=== PATIENT | male | born 1945 | race Caucasian/White ===

== ENCOUNTER 2021-08-13 08:18 | Outpatient (CLI) | payer MEDICARE, BC, SELFPAY ==
--- NOTE | ~2021-08-13 | XR_ITS ---
XR chest 2V DATE: 08/13/2021 08:40 INDICATION: Prostate cancer TECHNIQUE: PA and lateral views COMPARISON: 02/07/2013 portable AP chest FINDINGS: There is prominent sheet-like pleural calcification along the posterior left diaphragm. Some smaller pleural calcifications are noted on the right. The calcified bilateral pleural plaques a re consistent with prior asbestos exposure. There is mild discoid atelectasis or more likely scarring in the lower lung zones. No pulmonary infiltrate or consolidation is detected. There is eventration of the anterior right diaphragm. Heart size is within normal limits. No hilar or mediastinal enlargement is evident. Degenerative spurring of the thoracic spine. Degenerative change at the acromioclavicular joints. 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 E GOODS CLERK IMPRESSION: Bilateral calcified pleural plaques suggesting prior asbestos expos ure Mild discoid atelectasis or more likely scarring in the lower lung zones
--- NOTE | ~2021-08-13 | NM_ITS ---
EXAMINATION: NM bone scan whole body DATE: 08/13/2021 11:29 INDICATION: Prostate cancer TECHNIQUE: 22.9 mCi Tc-99m HDP was administered intravenously. Delayed whole-body scintigrams were o btained. COMPARISON: CT abdomen and pelvis dated 08/13/2021 FINDINGS: Likely degenerative joint centered uptake at the bilateral knees with medial compartment predominance as well as at the bilateral acromioclavicular and sternoclavicular joints. Mild uptake associated wi th a few endplate osteophytes in the lumbar and lower thoracic spine. Additional likely degenerative disc disease related uptake at the cervicothoracic junction. Tiny focus of increased uptake along the right mandible likely related to dental disease. No other suspicious foci of abnormal bone uptake to suggest metastatic disease. IMPRESSION: 1. No evident metastatic disease. Reviewed, dictated and finalized at location A. GN ENGINEER [employer]IPMENT
--- NOTE | ~2021-08-13 | CT_ITS ---
EXAMINATION: CT abdomen pelvis wo/w con EXAM DATE: 08/13/2021 11:47 INDICATION: Prostate cancer. TECHNIQUE: Spiral CT of the abdomen and pelvis was performed without contrast. The patient was then injected with small bolus intravenous Omnipaque 350, followed by delay of approximately 10 minutes to allow collecting system to opacify. A post contrast scan abdomen and pelvis was performed during inj ection of remaining contrast. A total of 130 cc intravenous contrast was administered. The dose-binh th product (DLP) for this examination was 2171.69 mGy-cm. The exposure was tailored according to pat ient size (auto mA exposure control), and iterative reconstruction (ASIR) was used as additional dose reduction technique. Comparison is made to prior examination from 01/12/2014. FINDINGS: Punctate left superior calyceal stone. There is a 10 cm left renal cyst. The kidneys enha nce symmetrically. There are no suspicious renal lesions. The calyces and opacified portions of ure ters are unremarkable, without filling defects or focal suspicious strictures. The bladder wall trab eculation. Mild prostatomegaly. The liver, spleen, adrenal glands and pancreas are unremarkable. Gallbladder is unremarkable. No bi liary obstruction. There is no retroperitoneal or pelvic lymphadenopathy. Small bilateral inguinal fat-containing hernias. Status post right hemicolectomy. There is small sliding gastroesophageal hiatal hernia. There is ex pected amount of colonic stool. No free intraperitoneal gas. The heart is normal in size. There are no pericardial or pleural effusions. Bilateral thick pleural plaques with calcifications, could indicate prior asbestos exposure. There are no osteoblastic or osteolytic lesions identified. Partia lly fused sacroiliac joints. Moderate to large bridging thoracolumbar endplate osteophytes. IMPRESSION: 1. Punctate left nephrolithiasis. Large left renal cyst. 2. Mild prostatomegaly. 3. Pleural plaques. 4. Right hemicolectomy. Reviewed, dictated and finalized at location G. L CLERK
[2021-08-13 11:29] LABS: Estimated Glomerular Filt Rate > 60
== END 2021-08-13 08:19 | disposition home or self-care (01) ==
LOC: ANHIMG 08:24
PROVIDERS: PCP Family Medicine Adolescent Medicine; Visit Provider Urology
DX: C61 Malignant neoplasm of prostate (principal); N20.0 Calculus of kidney; N28.1 Cyst of kidney, acquired; N40.0 Benign prostatic hyperplasia without lower urinary tract symptoms; J92.9 Pleural plaque without asbestos; Z90.49 Acquired absence of other specified parts of digestive tract; R91.8 Other nonspecific abnormal finding of lung field
CPT/HCPCS: 71046; 74178; 78306; A9561; Q9967

== ENCOUNTER 2021-12-03 19:23 | Observation (INO) | payer MEDICARE, BC, SELFPAY ==
[2021-12-03] VITALS (19 sets, daily range): BP systolic 130–141; BP diastolic 76–89; PULSE 48–63; RESP 14–20; TEMP 36.3; O2SAT 92–100
--- NOTE | ~2021-12-03 | CT_ITS ---
EXAMINATION: CT brain wo con DATE: 12/03/2021 20:06 INDICATION: Sudden onset of confusion starting at 1830 hours TECHNIQUE: Computed tomography (CT) of the head was performed without intravenous contrast. The mA wa s adjusted according to patient size. Iterative reconstruction technique was employed. Exam dose: 60 5.33 mGy-cm total exam DLP. COMPARISON: August 25, 2015 MRI brain/brainstem FINDINGS: No intracranial mass lesion or hemorrhage or cerebrovascular accident. No midline shift or mass effect effect. Ventricular size is within normal range. Bilateral carotid siphon internal carotid artery calcifications. There is nonspecific diminished atte nuation of the cerebral white matter, likely due to chronic small vessel ischemic changes. No subdural or epidural hematoma. No fracture or bone destruction of the cranial vault. Included paranasal sinuses and mastoid air cell s are normally developed and aerated. IMPRESSION: Cerebral atherosclerosis and chronic small vessel ischemic changes of the cerebral white matter No acute intracranial finding Reviewed, dictated and finalized at Location A. Reviewed, dictated and finalized at location A.
--- NOTE | ~2021-12-03 | MR_ITS ---
EXAMINATION: MR brain/brain stem wo con DATE: 12/04/2021 07:45 INDICATION: Cerebrovascular accident. TECHNIQUE: Magnetic resonance imaging (MRI) of the brain and brainstem was performed without intraven ous contrast. COMPARISON: Brain MRI 08/25/2015, head CT 12/03/2021 FINDINGS: There are scattered areas of nonspecific increased T2-weighted signal intensity in the cere bral and cerebellar white matter and brittaney. There is no intracranial hemorrhage, acute infarction, or abnormal intracranial mass lesion. The ventricles are normal in size. There is a trace left mastoid e ffusion. There is mild mucosal thickening in the basal sinuses. The orbits are normal. IMPRESSION: 1. Moderate nonspecific cerebral and cerebellar white matter disease and pontine disease, which likel y represents chronic small vessel ischemic disease, worsened from 08/25/2015. Reviewed, dictated and finalized at location A. IMPRESSION: 1. Moderate nonspecific cerebral and cerebellar white matter disease and pontin e disease, which likely represents chronic small vessel ischemic disease, worse [place] from 08/25/2015.
--- NOTE | ~2021-12-03 | US_ITS ---
EXAMINATION: US carotid duplex BI DATE: 12/04/2021 07:59 INDICATION: TIA TECHNIQUE: Grayscale, color Doppler, and pulsed Doppler images of the cervical carotid arteries were obtained. The degree of vessel stenosis is placed in one of the following categories: normal, <50%, 5 0-69%, >=70% but less than near-occlusion, near-occlusion, or total occlusion. Note that percent sten osis relative to normal distal artery lumen diameter is indirectly measured from velocity measurement s as described by Ant, et al. Radiology 2003; 229:340-346. Notes: Normal: Peak systolic velocity <125 centimeters/sec and no plaque <50%. Peak systolic velocity <125 ( EDV <40; ICA/CCA PSV ratio <2.0; used these factors only a tandem lesions or low cardiac output or co ntralateral disease) 50-69 %: PSV 125-230 (EDV 40-100; ratio 2-4) >= 70% but less than near occlusion: PSV greater than 230 (EDV > 100; ratio> 4.0) Near Occlusion: PSV that is variable; markedly narrowed lumen Occlusion: Absent flow on color/spectral Doppler and no lumen on nichols scale. COMPARISON: None. FINDINGS: RIGHT: The right common carotid artery (CCA) peak systolic velocity (PSV) is 75 cm/s. The right internal car otid artery (ICA) PSV is 54 cm/s. The right ICA end-diastolic velocity (EDV) is 20 cm/s. The right IC A/CCA PSV ratio is 1.2. The external carotid artery (ECA) PSV is 55 cm/s. There is antegrade flow in the right vertebral artery. LEFT: The left CCA PSV is 60 cm/s. The left ICA PSV is 59 cm/s. The left ICA EDV is 21 cm/s. The left ICA/C CA PSV ratio is 1.2. The ECA PSV is 56 cm/s. There is antegrade flow in the left vertebral artery. IMPRESSION: 1. Less than 50% stenosis in the right internal carotid artery by sonographic criteria. 2. Less than 50% stenosis in the left internal carotid artery by sonographic criteria. Reviewed, dictated and finalized at location D. IMPRESSION: 1. Less than 50% stenosis in the right internal carotid artery by sonographic nunu figueroa. 2. Less than 50% stenosis in the left internal carotid artery by sonographic joaquin rodriguez.
--- NOTE | 2021-12-03 19:31 | ECG_ITS ---
Measurements Intervals [place] Rate: 51 P: 17 MT: 178 QRS: -66 QRSD: 106 T: -11 QT: 467 QTc: 433 Interpretive Statements SINUS BRADYCARDIA MARKED LEFT AXIS DEVIATION [QRS AXIS < -30] NO PREVIOUS ECG AVAILABLE FOR COMPARISON Electronically Signed On 12-03-2021 20:41:49 CDT by Madeleine Vaughn M.D.
[2021-12-03 19:35] LABS: Glucose Point of Care 87 mg/dl (65-105)
--- NOTE | 2021-12-03 19:43 | ED.NEUROSD ---
HPI - Neuro Symptoms/Deficit General Chief Complaint: Altered Mental Status Stated Complaint: confusion Time Seen by Provider: 12/03/21 19:36 History of Present Illness HPI Narrative: At around 1830 tonight patient developed slurred speach and difficult forming sentences. Pt felt a little unsteady but denies weakness, numbness, or COOPER. Over last hour the symptoms have improved greatly and are nearly resolved now. Related Data Allergies Allergy/AdvReac Type Severity Reaction Status Date / Time No Known Allergies Allergy Mild Unverified 05/07/10 07:34 Review of Systems Review of Systems: All systems reviewed & are unremarkable except as noted in HPI and below Exam Const: General: healthy appearing and no acute distress Nutritional Appearance: well nourished Orientation/consciousness: patient oriented x3 Limitations: no limitations HENMT: Head: normal to inspection Mouth: Yes Normal oral and palatal mucosa present Eyes: Pupils: Equal, round and reactive pupils present EOM: EOMs intact bilaterally Neck: Neck: normal visual inspection and no meningeal signs Resp: Effort & Inspection: normal respiratory effort Auscultation: clear to auscultation bilaterally Cardio: Rate: regular rate Rhythm: regular rhythm Heart sounds: Murmur heart sound present GI: GI Palp: Yes Soft to palpation Auscultation: normal bowel sounds Skin: General skin exam: normal color Rashes: no rashes Wounds: no wounds Neuro: General: patient oriented x3, moves all extremities, no meningeal signs, no focal motor deficits and CN's II-XI intact bilaterally Cranial nerves: Yes Nystagmus not present Speech: normal speech Gait exam (Neuro): Normal gait present Extrem: General: normal to inspection and no clubbing, cyanosis or edema Psych: Mental Status: mental status grossly normal Affect: normal affect Attitude: cooperative Course Vital Signs Vital signs: Vital Signs Temperature 97.4 F L 12/03/21 19:23 Pulse Rate 55 L 12/03/21 19:23 Respiratory Rate 16 12/03/21 19:23 Blood Pressure 141/89 H 12/03/21 19:23 Pulse Oximetry 98 12/03/21 19:23 Temperature 97.4 F L 12/03/21 19:23 Pulse Rate 50 L 12/03/21 21:15 Respiratory Rate 20 12/03/21 21:15 Blood Pressure 138/76 12/03/21 21:15 Pulse Oximetry 100 12/03/21 21:15 MDM - Neuro Symptoms/Deficit Lab Data Result diagrams: 12/03/21 19:52 12/03/21 19:52 Labs: Lab Results 12/03/21 12/03/21 12/03/21 Range/Units 19:32 19:52 19:52 WBC 6.6 (4.5-10.0) K/mm3 RBC 4.46 L (4.6-6.20) M/mm3 Hgb 13.7 L (14.0-18.0) g/dL Hct 41.0 L (42.0-52.0) % MCV 91.9 (80-100) fl MCH 30.7 (26-34) pg MCHC 33.4 (32-36) g/dl RDW 12.5 (11.5-14.5) % Plt Count 197 (150-375) k/mm3 MPV 9.6 (7.4-10.4) fl Immature Gran % (Auto) 0.2 (0-0.5) % Neut % (Auto) 55.6 (45.5-73.1) % Lymph % (Auto) 29.7 (18.3-44.2) % [place] % (Auto) 8.5 (2.6-8.5) % Eos % (Auto) 5.5 H (0-4.4) % Baso % (Auto) 0.5 (0.2-1.2) % Lymph # (Auto) 1.95 (0.9-3.2) K/mm3 [place] # (Auto) 0.6 (0.1-0.6) K/mm3 Eos # (Auto) 0.4 H (0-0.3) K/mm3 Baso # (Auto) 0.0 (0.0-0.1) K/mm3 Abs Immat Gran (auto) 0.01 (0.00-0.031) K/mm3 Absolute Neuts (auto) 3.7 (1.3-6.7) K/mm3 Absolute Nucleated RBC 0.0 (0.0-0.012) K/mm3 Nucleated RBC % 0.0 (0.0-0.2) % PT 13.4 (11.1-14.7) Seconds INR 1.1 APTT 36.4 (22.3-36.8) SECONDS Sodium (137-145) mmol/L Potassium (3.4-5.0) mmol/L Chloride (98-107) mmol/L Carbon Dioxide (22-30) mmol/L Anion Gap (8-16) mmol/L BUN (9-20) mg/dL Creatinine (0.7-1.3) mg/dL Estim Creat Clear Calc ml/min Estimated GFR (59 - ) Glucose (65-110) mg/dL POC Capillary Glucose 87 (65-105) mg/dl Calcium (8.4-10.2) mg/dL Total Bilirubin (0.2-1.3) mg/dL AST (17-59) U/L ALT (6-50) U/L Alkaline Phosphatase
[2021-12-03 19:59] LABS: Basophils Percent Auto 0.5 % (0.2-1.2); Eosinophils Absolute Auto 0.4 K/mm3 (0-0.3); Eosinophils Percent Auto 5.5 % (0-4.4); Hemoglobin 13.7 g/dL (14.0-18.0); Immature Granulocyte Absolute 0.01 K/mm3 (0.00-0.031); Immature Granulocyte Percent A 0.2 % (0-0.5); Lymphocytes Absolute Auto 1.95 K/mm3 (0.9-3.2); Lymphocytes Percent Auto 29.7 % (18.3-44.2); Mean Corpuscular HGB Conc 33.4 g/dl (32-36); Mean Corpuscular Hemoglobin 30.7 pg (26-34); Mean Corpuscular Volume 91.9 fl (80-100); Mean Platelet Volume 9.6 fl (7.4-10.4); Monocytes Absolute Auto 0.6 K/mm3 (0.1-0.6); Monocytes Percent Auto 8.5 % (2.6-8.5); Neutrophils Absolute Auto 3.7 K/mm3 (1.3-6.7); Neutrophils Percent Auto 55.6 % (45.5-73.1); Platelet Count Result 197 k/mm3 (150-375); Red Blood Count 4.46 M/mm3 (4.6-6.20); Red Cell Distribution Width 12.5 % (11.5-14.5); White Blood Count 6.6 K/mm3 (4.5-10.0)
[2021-12-03 20:10] LABS: Alanine Aminotransferase 11 U/L (6-50); Alkaline Phosphatase 57 U/L (38-126); Anion Gap 5 mmol/L (8-16); Aspartate Amino Transferase 21 U/L (17-59); Bilirubin,Total 0.3 mg/dL (0.2-1.3); Blood Urea Nitrogen 11 mg/dL (9-20); Calcium 8.5 mg/dL (8.4-10.2); Carbon Dioxide 28 mmol/L (22-30); Chloride 106 mmol/L (98-107); Estimated CRCL calculation 72 ml/min; Estimated Glomerular Filt Rate > 60; Glucose 96 mg/dL (65-110); INR 1.1; Potassium 3.9 mmol/L (3.4-5.0); Prothrombin Time 13.4 Seconds (11.1-14.7); Sodium 139 mmol/L (137-145)
[2021-12-03 20:11] LABS: Partial Thromboplastin Time 36.4 SECONDS (22.3-36.8)
[2021-12-03 21:34] LABS: Appearance Urine Clear (Clear); Bilirubin Urine Negative (Negative); Blood Urine Negative (Negative); Color Urine Yellow (Yellow); Glucose Urine UA Negative (Negative); Ketones Urine Negative (Negative); Leukocyte Esterase Ur Negative LEU/UL (Negative); Nitrate Urine Negative (Negative); Protein Urine Negative (Negative); Specific Grav Ur 1.015 (1.001-1.035)
[2021-12-03 21:40] LABS: Add Urine Microscopic? NO; WBC Urine 0-3 /hpf
--- NOTE | 2021-12-04 | ECHO_ITS ---
Patient Info Name: Vamsi Waite Age: 76 years : 1945 Gender: Male Ht: 70 in Wt: 165 lbs BSA: 1.93 m2 HR: 78 bpm BP: 128 / 84 mmHg Technical Quality: Fair Exam Date: 12/04/2021 12:08 PM Exam Location: [facility] Pulmonary Exam Room: 322 Patient Status: Inpatient Admit Date: 12/03/2021 Staff Ordering Physician: Collins Paulson MD [employer] Printer Operator: Lara Pringle RDCS Attending Provider: Lorenza Banks DO Exam Type: CA echo doppler color flow Study Info Indications - TIA Complete two-dimensional, color flow and Doppler transthoracic echocardiogram is performed. Summary 1. Complete two-dimensional, color flow and Doppler transthoracic echocardiogram is performed. 2. Left ventricular chamber dimension is normal. 3. Left ventricular systolic function is normal, estimated at 60-65%. 4. The left ventricular diastolic function is grade I diastolic dysfunction. 5. E/e' 9 is minimally elevated. 6. Left atrial chamber dimension is mildly enlarged. 7. No pulmonary hypertension, estimated pulmonary arterial systolic pressure is 21 mmHg. 8. There is trace pulmonic regurgitation. Left Ventricle E/e' 9 is minimally elevated. Left ventricular chamber dimension is normal. Left ventricular systolic function is normal, estimated at 60-65%. The left ventricular diastolic function is grade I diastolic dysfunction. Right Ventricle Right ventricular chamber dimension is normal. Right ventricular systolic function is normal. Left Atria Left atrial chamber dimension is mildly enlarged. Right Atria Right atrial chamber dimension is normal. Aortic Valve The aortic valve is trileaflet. There is no aortic valve stenosis. There is no aortic valve regurgitation. Pulmonic Valve There is trace pulmonic regurgitation. Mitral Valve There is no mitral valve stenosis. There is no mitral valve regurgitation. Tricuspid Valve There is no tricuspid valve regurgitation. No pulmonary hypertension, estimated pulmonary arterial systolic pressure is 21 mmHg. Pericardium/Pleural There is no pericardial effusion. Inferior Vena Cava Normal inferior vena cava with >50% collapse upon inspiration consistent with normal right atrial pressure, 5 mmHg. Aorta The aortic root size at the sinus of Valsalva is normal. Left Ventricular Outflow Tract Name Value Normal LVOT 2D LVOT Diameter 2.1 cm LVOT Doppler LVOT Peak Gradient 3 mmHg LVOT Mean Gradient 2 mmHg LVOT VTI 20 cm LVOT VTI/AV VTI Ratio 0.9 LVOT Stroke Volume 71 ml LVOT CO 14.4 l/min LVOT CI 7.5 l/min/m2 Pulmonic Valve Name Value Normal PV Doppler PV Peak Gradient 3 m
[2021-12-04 00:10] VITALS: BP 136/80; PULSE 45; RESP 16; TEMP 36.1; O2SAT 98
--- NOTE | 2021-12-04 00:18 | ADMGEN ---
This patient, Vamsi Waite, was admitted to [address] [facility] Surg Room 322-02. Patient/family oriented to hospital policies and general routines including ID bracelet, bed and alarms, visiting hours, pain management, procedures, bathroom and other care routines, personal items, smoking policy, room service/diet, and visiting hours. Information on how to activate the Rapid Response Team has been discussed. Patient/Family are encouraged to report perceived risks to care and to ask questions if they do not understand what they are told or what they should do.
--- NOTE | 2021-12-04 00:31 | PC.NURSE ---
12/04/21 0025 per pt's request avtar de la torre (spouse) contacted for admission questions to be answered.
[2021-12-04 04:00] VITALS: PULSE 53
[2021-12-04 05:10] VITALS: BP 128/84; PULSE 55; RESP 16; TEMP 36.3; O2SAT 94
[2021-12-04 08:00] VITALS: PULSE 55; RESP 16; O2SAT 94
[2021-12-04 08:08] LABS: Glucose Point of Care 92 mg/dl (65-105)
[2021-12-04] MEDS: PANTOPRAZOLE 40 MG TABLET PO (08:43)
[2021-12-04] MEDS: SIMVASTATIN 20 MG TABLET 80 MG PO (08:43)
[2021-12-04] MEDS: TAMSULOSIN HCL 0.4 MG CAPSULE PO (08:43)
[2021-12-04] MEDS: ASPIRIN 81 MG ENTERIC TABLET PO (08:43)
[2021-12-04] MEDS: OXYBUTYNIN CHLORIDE 5 MG TABLET PO (08:43)
[2021-12-04 11:52] LABS: Glucose Point of Care 108 mg/dl (65-105)
--- NOTE | 2021-12-04 12:54 | PCCCNOTE ---
On 12/04/21, the student, [Connie Cloud], provided care and completed [facility] documentation on this patient. I have reviewed the student's documentation and agree with the findings.
[2021-12-04 13:44] VITALS: BP 120/84; PULSE 78; RESP 18; TEMP 36.1; O2SAT 96
[2021-12-04 16:11] LABS: Glucose Point of Care 135 mg/dl (65-105)
--- NOTE | 2021-12-04 16:52 | PM.DS ---
DS: Summary Time Spent with Patient Time attestation: Total time spent providing and/or coordinating discharge services: DS: Data Data Completed and Pending Labs on day of discharge: Labs from last 24 hours 12/04/21 12/04/21 12/04/21 16:08 11:43 08:04 WBC RBC Hgb Hct MCV MCH MCHC RDW Plt Count MPV Immature Gran % (Auto) Neut % (Auto) Lymph % (Auto) [place] % (Auto) Eos % (Auto) Baso % (Auto) Lymph # (Auto) [place] # (Auto) Eos # (Auto) Baso # (Auto) Abs Immat Gran (auto) Absolute Neuts (auto) Absolute Nucleated RBC Nucleated RBC % PT INR APTT Sodium Potassium Chloride Carbon Dioxide Anion Gap BUN Creatinine Estim Creat Clear Calc Estimated GFR Glucose POC Capillary Glucose 135 H 108 H 92 Calcium Total Bilirubin AST ALT Alkaline Phosphatase Total Protein Albumin Urine Color Urine Appearance Urine pH Ur Specific [place] Urine Protein Urine Glucose (UA) Urine Ketones Ur Blood (Man) Urine Nitrate Urine Bilirubin Urine Urobilinogen Leukocyte Esterase Rfl Urine WBC 12/03/21 12/03/21 12/03/21 21:14 19:52 19:52 WBC RBC Hgb Hct MCV MCH MCHC RDW Plt Count MPV Immature Gran % (Auto) Neut % (Auto) Lymph % (Auto) [place] % (Auto) Eos % (Auto) Baso % (Auto) Lymph # (Auto) [place] # (Auto) Eos # (Auto) Baso # (Auto) Abs Immat Gran (auto) Absolute Neuts (auto) Absolute Nucleated RBC Nucleated RBC % PT 13.4 INR 1.1 APTT 36.4 Sodium 139 Potassium 3.9 Chloride 106 Carbon Dioxide 28 Anion Gap 5 L BUN 11 Creatinine 0.80 Estim Creat Clear Calc 72 Estimated GFR > 60 Glucose 96 POC Capillary Glucose Calcium 8.5 Total Bilirubin 0.3 AST 21 ALT 11 Alkaline Phosphatase 57 Total Protein 7.0 Albumin 4.0 Urine Color Yellow Urine Appearance Clear Urine pH 7.0 Ur Specific [place] 1.015 Urine Protein Negative Urine Glucose (UA) Negative Urine Ketones Negative Ur Blood (Man) Negative Urine Nitrate Negative Urine Bilirubin Negative Urine Urobilinogen 1.0 Leukocyte Esterase Rfl Negative Urine WBC 0-3 12/03/21 12/03/21 19:52 19:32 WBC 6.6 RBC 4.46 L Hgb 13.7 L Hct 41.0 L MCV 91.9 MCH 30.7 MCHC 33.4 RDW 12.5 Plt Count 197 MPV 9.6 Immature Gran % (Auto) 0.2 Neut % (Auto) 55.6 Lymph % (Auto) 29.7 [place] % (Auto) 8.5 Eos % (Auto) 5.5 H Baso % (Auto) 0.5 Lymph # (Auto) 1.95 [place] # (Auto) 0.6 Eos # (Auto) 0.4 H Baso # (Auto) 0.0 Abs Immat Gran (auto) 0.01 Absolute Neuts (auto) 3.7 Absolute Nucleated RBC 0.0 Nucleated RBC % 0.0 PT INR APTT Sodium Potassium Chloride Carbon Dioxide Anion Gap BUN Creatinine Estim Creat Clear Calc Estimated GFR Glucose POC Capillary Glucose 87 Calcium Total Bilirubin AST ALT Alkaline Phosphatase Total Protein Albumin Urine Color Urine Appearance Urine pH Ur Specific [place] Urine Protein Urine Glucose (UA) Urine Ketones Ur Blood (Man) Urine Nitrate Urine Bilirubin Urine Urobilinogen Leukocyte Esterase Rfl Urine WBC Discharge Plan Discharge Attending physician on discharge: Collins Paulson Discharging Clinician: Collins Paulson Patient Disposition: Home, Self-Care Activity: as tolerated Diet: heart healthy Discharge Instructions: patient to follow-up with his primary care provider soon as possible, patient instructed if any symptoms redeveloped to go to nearest emergency depart Patient Instructions: Antibiotic Form Stand Alone Forms: General Discharge Information Follow-up/Referrals: Hussein Davis MD [Primary Care Provider] - Discharge
--- NOTE | 2021-12-04 16:53 | PM.SD2 ---
Same Day Admit/Disch: HPI History of Present Illness Chief complaint: tia Narrative: Vamsi Waite is a 76 year old male ED-HPI-At around 1830 tonight patient developed slurred speach and difficult forming sentences.? Pt felt a little unsteady but denies weakness, numbness, or COOPER.? Over last hour the symptoms have improved greatly and are nearly resolved now. this morning patient's symptoms have resolved and states his speech is much better and is able to ambulate without any difficulty to further evaluate patient had CT scan of the head, MRI of the brain, and cardiac echo as well as carotid ultrasound on all the studies are normal. patient is already taking simvastatin 80 mg q.day and aspirin 81 mg q.day instructed to continue and will follow-up his primary care provider. [facility] Social History Social History Smoking status: Never smoker Alcohol intake: never Substance use: never Spiritual care concerns: No Same Day Admit/Disch: Med Pre-admit Medications Home Medications Medication Instructions Recorded Confirmed Type simvastatin 80 mg tablet 80 mg PO DAILY #90 tabs 08/31/21 12/04/21 Rx oxybutynin chloride 5 mg tablet 5 mg PO BID 12/04/21 12/04/21 History pantoprazole 40 mg tablet,delayed 40 mg PO BID 12/04/21 12/04/21 History release risperidone 2 mg tablet 2 mg PO HS 12/04/21 12/04/21 History tamsulosin 0.4 mg capsule 0.4 mg PO BID 12/04/21 12/04/21 History Exam Narrative: Patient is comfortable, NAD HEENT: eyes are clear and none icteric LUNGS: normal respiratory effort ABD: not distended Lower extremities: no edema SKIN: nonjaundiced Neuro: grossly intact. DS: Data Data Completed and Pending Labs on day of discharge: Labs from last 24 hours 12/04/21 12/04/21 12/04/21 16:08 11:43 08:04 WBC RBC Hgb Hct MCV MCH MCHC RDW Plt Count MPV Immature Gran % (Auto) Neut % (Auto) Lymph % (Auto) [place] % (Auto) Eos % (Auto) Baso % (Auto) Lymph # (Auto) [place] # (Auto) Eos # (Auto) Baso # (Auto) Abs Immat Gran (auto) Absolute Neuts (auto) Absolute Nucleated RBC Nucleated RBC % PT INR APTT Sodium Potassium Chloride Carbon Dioxide Anion Gap BUN Creatinine Estim Creat Clear Calc Estimated GFR Glucose POC Capillary Glucose 135 H 108 H 92 Calcium Total Bilirubin AST ALT Alkaline Phosphatase Total Protein Albumin Urine Color Urine Appearance Urine pH Ur Specific [place] Urine Protein Urine Glucose (UA) Urine Ketones Ur Blood (Man) Urine Nitrate Urine Bilirubin Urine Urobilinogen Leukocyte Esterase Rfl Urine WBC 12/03/21 12/03/21 12/03/21 21:14 19:52 19:52 WBC RBC Hgb Hct MCV MCH MCHC RDW Plt Count MPV Immature Gran % (Auto) Neut % (Auto) Lymph % (Auto) [place] % (Auto) Eos % (Auto) Baso % (Auto) Lymph # (Auto) [place] # (Auto) Eos # (Auto) Baso # (Auto) Abs Immat Gran (auto) Absolute Neuts (auto) Absolute Nucleated RBC Nucleated RBC % PT 13.4 INR 1.1 APTT 36.4 Sodium 139 Potassium 3.9 Chloride 106 Carbon Dioxide 28 Anion Gap 5 L BUN 11 Creatinine 0.80 Estim Creat Clear Calc 72 Estimated GFR > 60 Glucose 96 POC Capillary Glucose Calcium 8.5 Total Bilirubin 0.3 AST 21 ALT 11 Alkaline Phosphatase 57 Total Protein 7.0 Albumin 4.0 Urine Color Yellow Urine Appearance Clear Urine pH 7.0 Ur Specific [place] 1.015 Urine Protein Negative Urine Glucose (UA) Negative Urine Ketones Negative Ur Blood (Man) Negative Urine Nitrate Negative Urine Bilirubin Negative Urine Urobilinogen 1.0 Leukocyte Esterase Rfl Negative Urine WBC 0-3 12/03/21 12/03/21 19:52 19:32 WBC 6.6 RBC 4.46 L Hgb 13.7 L Hct 4
== END 2021-12-04 17:50 | disposition home or self-care (01) ==
LOC: ANHED 21:42 → ANH3MEDSUR 22:47
PROVIDERS: Emergency Medicine; Admitting Provider Internal Medicine; Emergency Provider Emergency Medicine; PCP Family Medicine Adolescent Medicine; Visit Provider Internal Medicine
DX: G45.9 Transient cerebral ischemic attack, unspecified (principal); Z79.899 Other long term (current) drug therapy
CPT/HCPCS: 36415; 70450; 70551; 80053; 81003; 82948; 85025; 85610; 85730; 93005; 93306; 93880; 99285; A9270; G0378

== ENCOUNTER 2021-12-29 09:44 | Outpatient (CLI) | payer MEDICARE, BC, SELFPAY ==
--- NOTE | ~2021-12-29 | XR_ITS ---
EXAMINATION: XR chest 2V DATE: 12/29/2021 11:49 INDICATION: Malignant neoplasm of the prostate TECHNIQUE: PA and lateral views of the chest are obtained. COMPARISON: 08/13/2021 FINDINGS: The lungs are free of acute opacities. There are areas of chronic pleural calcification. No pleural effusion or pneumothorax. The cardiomediastinal silhouette is normal. There is mild thoracic spondylosis. IMPRESSION: 1. No acute cardiopulmonary abnormality. 2. Areas of pleural calcification which can be seen in the setting of prior asbestos exposure. Reviewed, dictated and finalized at location B. IMPRESSION: 1. No acute cardiopulmonary abnormality. 2. Areas of pleural calcification which can be seen in the setting of prior asb estos exposure.
[2021-12-29 11:46] LABS: Appearance Urine Clear (Clear); Bilirubin Urine Negative (Negative); Blood Urine Negative (Negative); Color Urine Yellow (Yellow); Glucose Urine UA Negative (Negative); Ketones Urine Negative (Negative); Leukocyte Esterase Ur Negative LEU/UL (Negative); Nitrate Urine Negative (Negative); Protein Urine Negative (Negative); Urobilinogen Urine 0.2 mg/dL (<2.0)
[2021-12-29 11:52] LABS: Add Urine Microscopic? NO
== END 2021-12-29 09:45 | disposition home or self-care (01) ==
PROVIDERS: PCP Family Medicine Adolescent Medicine; Visit Provider Urology
DX: C61 Malignant neoplasm of prostate (principal); Z01.818 Encounter for other preprocedural examination
CPT/HCPCS: 36415; 71046; 81003; 86850; 86900; 86901

== ENCOUNTER 2022-01-07 01:03 | Day surgery (SDC) | payer MEDICARE, BC, SELFPAY ==
--- NOTE | 2021-12-10 16:06 | PM.IMHP ---
H&P: HPI History of Present Illness Date/Time: 12/10/21 16:06 Chief Complaint: Prostate cancer Narrative: patient is a 76-year-old gentleman recently referred with a PSA of 10.5. Transrectal ultrasound and biopsy of the prostate demonstrated a 45.0 cc prostate with 3 of 12 cores showing Abad 3+4=7 and 4+3=7. This is consistent with an in cc an unfavorable intermediate risk prostate cancer. After was careful discussion of therapeutic options including active surveillance, radiation therapy in various forms, androgen ablation and radical prostatectomy he has elected for the latter. He is aware of the risk including, but not limited to, adverse cardiopulmonary events, rectal injury, urinary incontinence and erectile dysfunction Review of Systems Cardiovascular: Cardiovascular: Denies chest pain, Denies lightheadedness, Denies palpitations and Denies dyspnea Respiratory: Respiratory: Denies dyspnea Gastrointestinal: Gastrointestinal: Denies diarrhea, Denies nausea and Denies vomiting Genitourinary: Genitourinary: Denies hematuria and Denies dysuria Endocrine: Endocrine: Denies palpitations PMFSH Past Medical History Medical History (Updated 12/10/21 @ 16:09 by Saad Larios MD) Brain TIA Family hx of colon cancer Hx of back injury Hx of colonic polyp Surgical History Surgical History (Updated 12/10/21 @ 10:21 by Saniya Betts MA) History of colon resection Hx of hernia repair Family History Family History Father Acute myocardial infarction Mother Carcinoma of colon, Onset Age: 83 Sibling Carcinoma of colon, Onset Age: 48 Social History Social History (Updated 12/10/21 @ 10:21 by Saniya Betts MA) Smoking status: Never smoker Second hand tobacco smoke exposure: No Alcohol intake: never Substance use: never Substance use type: does not use Living arrangements: with family Occupation/Education: retired Gender identity (if verbalized by the patient): Male Sexual Orientation (if Verbalized by the Patient): Straight or Heterosexual Spiritual care concerns: No Agree to blood products: Yes Meds Home Medications and Allergies Home Medications Medication Instructions Recorded Confirmed Type aspirin 81 mg tablet,delayed 81 mg PO QAM #30 tabs 12/04/21 12/10/21 Rx release oxybutynin chloride 5 mg tablet 5 mg PO BID 12/04/21 12/10/21 History pantoprazole 40 mg tablet,delayed 40 mg PO BID 12/04/21 12/10/21 History release risperidone 2 mg tablet 2 mg PO HS 12/04/21 12/10/21 History tamsulosin 0.4 mg capsule 0.4 mg PO BID 12/04/21 12/10/21 History atorvastatin 80 mg tablet 80 mg PO DAILY #90 tabs 12/10/21 12/10/21 Rx paroxetine HCl 40 mg tablet 40 mg PO DAILY 12/10/21 12/10/21 History Allergies Allergy/AdvReac Type Severity Reaction Status Date / Time No Known Allergies Allergy Mild Unverified 12/10/21 10:17 Exam Const: General: no acute distress Resp: Effort & Inspection: normal respiratory effort GI: Inspection: non-distended GI Palp: No abdominal tenderness and No Guarding due to palpation present (GI) Auscultation: normal bowel sounds Assessment and Plan Assessment and plan (1) Prostate cancer: Code(s): C61 - Malignant neoplasm of prostate Status: Acute Assessment and Plan: Robotic assisted prostatectomy and bilateral pelvic lymphadenectomy
[2021-12-29 10:15] VITALS: BMI 29.3
--- NOTE | 2021-12-29 10:17 | PC.NURSE ---
Report to the Outpatient Waiting Room, entrance under the green pavilion located off [facility], at time __0600 on date _01/07/22 . OR Time: _729 . - You and your visitor will be asked a series of questions to screen for COVID 19 for your protection. - Only one visitor is allowed at this time. - The patient visitor is requested to leave or wait in car when not with patient. - A mask is required within the hospital. Patients may have clear liquids (water, carbonated beverages, clear teas, apple juice) until 3 hours prior to surgery with a maximum of 20 ounces. - No food from midnight until time of surgery - Infants may have breast milk until 4 hours before surgery, infant formula 6 hours prior to surgery. - Children will be allowed to drink immediately following surgery. If applicable, please bring a bottle or sippy cup to assist with drinking. Juice, water, soda, and popsicles are readily available. For infants on formula, please bring formula the day of surgery. Pacifiers are allowed. Take the following medications with a SIP of water the morning of surgery: ____PAROXETINE Medications to discontinue per physician __PT STATES ASPIRIN 7 DAYS PRE OP PER DR ECHEVERRIA Date to take last dose____12/30/21 Please no make-up, nail setswana, hairspray, perfume, deodorant, or body powder the day of surgery. No jewelry (including any body piercings) or valuables the day of surgery, leave them at home. Please take a shower or bath the night before, or the morning of, surgery with an antibacterial soap. Wear comfortable, loose fitting clothing. Children are encouraged to wear pajamas. - Jewelry must be removed prior to entering the operating room. Rings and piercings that are not removed may be cut off. - The hospital will not accept responsibility for valuables. - Please leave all valuables, including medications, at home the day of surgery. If you are going home after surgery, a licensed driver's education instructor must drive you home. - NO public transportation without another adult. - We recommend that an adult stay with you for 24 hours following discharge. - We also recommend that you do not drive, make important decision, drink alcoholic beverages, or take any drugs that were not prescribed by your health care provider for at least 24 hours after your discharge time. For Pediatric surgeries, we recommend two adults accompany the child home (only one inside the building at this time). BOWEL PREP PER DR ECHEVERRIA Follow any additional instructions given to you from your surgeon. If you or anyone in your household have experienced Covid symptoms in the past week, please notify your surgeon or the nurse liaison at the phone number below for possible testing. VERBAL AND WRITTEN instructions given to PATIENT AND PAT and asked if any additional questions and then verbalized understanding. Patient advised to call surgeon office or pre surgery nurse liaison [phone] if any additional questions.
[2021-12-29 10:38] VITALS: BP 108/76; PULSE 64; RESP 18; TEMP 36.2; O2SAT 96
--- NOTE | 2022-01-06 13:57 | WPDANESEPPF ---
Anes - Initial Pre Proc Eval Procedure: Operation Date: 01/07/22 07:30 Proposed Procedures p Robotic Assisted Laparoscopic Prostatectomy with Bilateral Pelvic Lymph Node Dissection - Saad Larios MD Date/Time: 01/06/22 13:57 Surgeon: Saad Larios MD Pre Op Diagnosis: prostate CA Patient Data Age: 76 Gender: M Height: 1.85 m Weight: 100.8 kg Last Vital Signs Temp 97.2 F L 12/29/21 10:38 Pulse 64 12/29/21 10:38 Resp 18 12/29/21 10:38 BP 108/76 12/29/21 10:38 Pulse Ox 96 12/29/21 10:38 O2 Del Method Room Air 12/29/21 10:38 Allergies Allergy/AdvReac Type Severity Reaction Status Date / Time No Known Allergies Allergy Mild Unverified 01/07/22 06:45 Home Medications Medication Instructions Recorded Confirmed Type aspirin 81 mg tablet,delayed 81 mg PO QAM #30 tabs 12/04/21 01/07/22 Rx release oxybutynin chloride 5 mg tablet 5 mg PO BID 12/04/21 01/07/22 History risperidone 2 mg tablet 2 mg PO HS 12/04/21 01/07/22 History tamsulosin 0.4 mg capsule 0.4 mg PO BID 12/04/21 01/07/22 History paroxetine HCl 40 mg tablet 40 mg PO QAM 12/10/21 01/07/22 History atorvastatin 80 mg tablet 80 mg PO HS 12/29/21 01/07/22 History pantoprazole 40 mg tablet,delayed 40 mg PO BID 01/07/22 01/07/22 History release Patient hx anesthesia problems: none Family hx anesthesia problems: none Results Review: All pre-operative results and documents have been reviewed as part of the pre-operative evaluation. [facility] Past Medical History Medical History (Updated 01/06/22 @ 13:57 by Jarred Vizcaino MD) Asthma Brain TIA Family hx of colon cancer Hx of back injury Hx of colonic polyp Prostate cancer Pure hypercholesterolemia, unspecified Surgical History Surgical History (Updated 12/10/21 @ 10:21 by Saniya Betts MA) History of colon resection Hx of hernia repair Family History Family History Father Acute myocardial infarction Mother Carcinoma of colon, Onset Age: 83 Sibling Carcinoma of colon, Onset Age: 48 Social History Social History (Updated 12/10/21 @ 10:21 by Saniya Betts MA) Smoking status: Never smoker Second hand tobacco smoke exposure: No Alcohol intake: never Substance use: never Substance use type: does not use Living arrangements: with family Gender identity (if verbalized by the patient): Male Sexual Orientation (if Verbalized by the Patient): Straight or Heterosexual Spiritual care concerns: No Agree to blood products: Yes Anes - Eval Final PreProcedure Day of Procedure 01/06/22 13:57 Patient weight: normal Heart: regular rate and rhythm Lungs: clear to auscultation Airway: Mallampati scale class III Neurological: alert and oriented Last oral intake: >/= 8 hours ASA classification: III Emergent: no Anesthetic plan: proceed Anesthesia type and monitoring: general ETT and standard monitoring Results Review: All pre-operative results and documents have been reviewed as part of the pre-operative evaluation. Informed Consent: The patient's anesthetic plan and its attendant risks and benefits were discussed with the patient/family/POA. Questions were solicited and answers provided to the satisfaction of the patient/family/POA.
[2022-01-07] VITALS (9 sets, daily range): BP systolic 97–147; BP diastolic 68–92; PULSE 67–86; RESP 12–16; TEMP 36–36.2; O2SAT 94–100
--- NOTE | 2022-01-07 06:54 | WPDHPUPDATE1 ---
History and Physical Update Update Date/Time: 01/07/22 06:54 History and Physical has been reviewed, including an updated exam of the patient. There are NO changes in the patient's condition. Risks, benefits, and alternatives have been discussed and questions answered. Patient agrees to proceed with procedure.
[2022-01-07] MEDS: LACTATED RINGERS 1,000 ML 30 ML IV CONT ×2 (06:56→08:37)
[2022-01-07] MEDS: ceFAZolin 2 GM/D5W 50 ML 2 GM/50 ML BAG IVPB (07:29)
--- NOTE | 2022-01-07 09:16 | W.PM.PROC2 ---
Procedure Note - Detailed Date of Procedure 01/07/22 Pre-op Diagnosis Prostate CA Post-op Diagnosis Same Procedure Performed Laparoscopy, aborted robotic prostatectomy Surgeon Saad Larios MD Senior Asic Design Engineer Noah Caicedo, [employer] KEEPER Anesthesia General Findings Extensive abdominal adhesions Description of Procedure patient is brought the op suite was prepped draped in routine sterile fashion while in dorsal lithotomy position after the uneventful induction of a general endotracheal anesthetic. Insufflation was 1st attempted via a Veress needle through a supra umbilical incision in the line of his previous abdominal incision for colon polyps. Insufflation is abnormal with immediate high pressure flow precluding appropriate abdominal insufflation. I replaced the Veress needle in through a small incision in the left upper quadrant ( and anticipated possible site for placement of a suction trocar). Through this I was able to insufflate the abdomen a bit more and place a 5 mm Visiport. Careful inspection of the abdomen reveals extensive adhesions involving all quadrants. There was really no identifiable plane into the pelvis. In light of this, and his history of extensive adhesions several years ago, it was my decision that the risk of enterotomy and the potential inadequate prostatectomy was too great and, therefore, opted to abort the procedure. Postoperatively I will discuss with patient the alternative options for treating his prostate cancer, including pelvic radiation, androgen deprivation and active surveillance. Estimated Blood Loss 0 Drains No Pathology None sent Complications No immediate complications Condition Stable Disposition PACU
[2022-01-07] MEDS: oxyCODONE HCL (*CRX) 2.5 MG TAB IR PO (10:23)
== END 2022-01-07 10:53 | disposition home or self-care (01) ==
PROVIDERS: PCP Family Medicine Adolescent Medicine; Visit Provider Urology
PROC: 0VT04ZZ Resection of Prostate, Percutaneous Endoscopic Approach (ICD-10-PCS; CPT 55867; principal; 2022-01-07 07:30)
DX: C61 Malignant neoplasm of prostate (principal); K66.0 Peritoneal adhesions (postprocedural) (postinfection); E78.00 Pure hypercholesterolemia, unspecified; Z80.0 Family history of malignant neoplasm of digestive organs; Z86.73 Personal history of transient ischemic attack (TIA), and cerebral infarction without residual deficits; Z79.82 Long term (current) use of aspirin; Z90.49 Acquired absence of other specified parts of digestive tract
CPT/HCPCS: 55866; A9270; J0690; J1100; J1170; J2250; J2405; J2704; J2710; J3010; J7030; J7120

== ENCOUNTER 2023-02-23 01:27 | Day surgery (SDC) | payer MEDICARE, BC, SELFPAY ==
[2023-02-10 11:19] VITALS: BMI 29.5
[2023-02-23 09:19] VITALS: BP 113/89; PULSE 86; RESP 17; TEMP 35.7; O2SAT 99; BMI 27.9
[2023-02-23] MEDS: LACTATED RINGERS 1,000 ML 150 ML IV CONT (09:27)
--- NOTE | 2023-02-23 09:58 | PM.HPGS ---
History of Present Illness History of Present Illness Consent: Risks, benefits, and alternatives have been discussed and questions answered. Patient agrees to proceed with procedure. Chief complaint: family hx colon ca Narrative: Vamsi Waite is a 78 year old male with last colonoscopy 2017, sibling and mother had colon cancer Review of Systems Constitutional: Constitutional: Denies headache(s) and Denies weakness Eyes: Eyes: Denies blurry vision ENT: Reports Normal hearing present, Denies headache(s) and Denies neck pain Cardiovascular: Cardiovascular: Denies chest pain and Denies dyspnea Respiratory: Respiratory: Denies dyspnea Gastrointestinal: Gastrointestinal: Reports no additional gastrointestinal complaints Genitourinary: Genitourinary: Denies dysuria Musculoskeletal: Musculoskeletal: Denies neck pain Integumentary/Breasts: Skin/Breast: Denies dry skin Neurologic: Reports Normal hearing present, Denies headache(s) and Denies weakness Psychiatric: Psychiatric: Denies anxiety Endocrine: Endocrine: Denies change in body appearance Hematologic/Lymphatic: Hematologic/Lymphatic: Denies easy bleeding Allergic/Immunologic: Allergic/Immunologic: Denies urticaria PMFSH Past Medical History Medical History (Updated 02/23/23 @ 09:59 by Ford Mello MD) Asthma Brain TIA Family hx of colon cancer Hx of back injury Hx of colonic polyp Prostate cancer Pure hypercholesterolemia, unspecified Surgical History Surgical History (Updated 12/10/21 @ 10:21 by Saniya Betts MA) History of colon resection Hx of hernia repair Family History Family History Father Acute myocardial infarction Mother Carcinoma of colon, Onset Age: 83 Sibling Carcinoma of colon, Onset Age: 48 Social History Social History (Updated 12/07/22 @ 13:18 by Misael Cabrera CMA) Smoking status: Never smoker Second hand tobacco smoke exposure: No Alcohol intake: never Substance use: never Substance use type: does not use Lack of Transportation: No Lack of Food: Never True Current Housing: I Have Housing Concerned About Future Housing: No Difficulty Paying Gas/Electric Bills: No Difficulty Paying for Meds: No Currently Unemployed: No Education: Trade/Vocational Certificate Difficulty w/ Childcare or Family Care: No Living arrangements: with family Occupation/Education: retired Gender identity (if verbalized by the patient): Male Sexual Orientation (if Verbalized by the Patient): Straight or Heterosexual Spiritual care concerns: No Agree to blood products: Yes Meds Home Medications and Allergies Home Medications Medication Instructions Recorded Confirmed Type aspirin 81 mg tablet,delayed 81 mg PO QAM #30 tabs 12/04/21 02/23/23 Rx release paroxetine HCl 40 mg tablet 40 mg PO QAM 12/10/21 02/23/23 History atorvastatin 80 mg tablet 80 mg PO HS #90 tabs 08/19/22 02/23/23 Rx diclofenac sodium 75 mg 75 mg PO BID PRN pain #60 tabs 12/07/22 02/23/23 Rx tablet,delayed release pantoprazole 40 mg tablet,delayed 40 mg PO BID #180 tabs 12/27/22 02/23/23 Rx release tamsulosin 0.4 mg capsule See Rx Instructions .Route 12/27/22 02/23/23 Rx .COMPLEX #180 caps oxybutynin chloride 5 mg tablet 5 mg PO BID #180 tabs 01/14/23 02/23/23 Rx risperidone 2 mg tablet See Rx Instructions .Route 02/21/23 02/23/23 Rx .COMPLEX #90 tabs Allergies Allergy/AdvReac Type Severity Reaction Status Date / Time No Known Allergies Allergy Mild Verified 02/23/23 09:14 Vital Signs Vital Signs - 24 hr 02/23/23 09:19 Temperature 96.3 F L Pulse Rate 86 Respiratory Rate 17 Blood Pressure 113/89 Pulse Oximetry 99 Oxygen Delivery Room Air Exam Const: General: comfortable and no acute distress HENMT: Face/Nose/Sinus: Normal nares present Eyes: General: appearance normal, both eyes and all related st
--- NOTE | 2023-02-23 10:01 | WPDANESEPPF ---
Anes - Initial Pre Proc Eval Procedure: Operation Date: 02/23/23 10:30 Proposed Procedures p Colonoscopy - Ford Mello MD Date/Time: 02/23/23 10:01 Surgeon: Ford Mello MD Pre Op Diagnosis: family hx colon ca Patient Data Age: 78 Gender: M Height: 1.88 m Weight: 98.8 kg Last Vital Signs Temp 96.3 F L 02/23/23 09:19 Pulse 86 02/23/23 09:19 Resp 17 02/23/23 09:19 BP 113/89 02/23/23 09:19 Pulse Ox 99 02/23/23 09:19 O2 Del Method Room Air 02/23/23 09:19 Allergies Allergy/AdvReac Type Severity Reaction Status Date / Time No Known Allergies Allergy Mild Verified 02/23/23 09:14 Home Medications Medication Instructions Recorded Confirmed Type aspirin 81 mg tablet,delayed 81 mg PO QAM #30 tabs 12/04/21 02/23/23 Rx release paroxetine HCl 40 mg tablet 40 mg PO QAM 12/10/21 02/23/23 History atorvastatin 80 mg tablet 80 mg PO HS #90 tabs 08/19/22 02/23/23 Rx diclofenac sodium 75 mg 75 mg PO BID PRN pain #60 tabs 12/07/22 02/23/23 Rx tablet,delayed release pantoprazole 40 mg tablet,delayed 40 mg PO BID #180 tabs 12/27/22 02/23/23 Rx release tamsulosin 0.4 mg capsule See Rx Instructions .Route 12/27/22 02/23/23 Rx .COMPLEX #180 caps oxybutynin chloride 5 mg tablet 5 mg PO BID #180 tabs 01/14/23 02/23/23 Rx risperidone 2 mg tablet See Rx Instructions .Route 02/21/23 02/23/23 Rx .COMPLEX #90 tabs Patient hx anesthesia problems: none Family hx anesthesia problems: none Results Review: All pre-operative results and documents have been reviewed as part of the pre-operative evaluation. [facility] Past Medical History Medical History (Updated 02/23/23 @ 09:59 by Ford Mello MD) Asthma Brain TIA Family hx of colon cancer Hx of back injury Hx of colonic polyp Prostate cancer Pure hypercholesterolemia, unspecified Surgical History Surgical History (Updated 12/10/21 @ 10:21 by Saniya Betts MA) History of colon resection Hx of hernia repair Family History Family History Father Acute myocardial infarction Mother Carcinoma of colon, Onset Age: 83 Sibling Carcinoma of colon, Onset Age: 48 Social History Social History (Updated 12/07/22 @ 13:18 by Misael Cabrera CMA) Smoking status: Never smoker Second hand tobacco smoke exposure: No Alcohol intake: never Substance use: never Substance use type: does not use Lack of Transportation: No Lack of Food: Never True Current Housing: I Have Housing Concerned About Future Housing: No Difficulty Paying Gas/Electric Bills: No Difficulty Paying for Meds: No Currently Unemployed: No Education: Trade/Vocational Certificate Difficulty w/ Childcare or Family Care: No Living arrangements: with family Occupation/Education: retired Gender identity (if verbalized by the patient): Male Sexual Orientation (if Verbalized by the Patient): Straight or Heterosexual Spiritual care concerns: No Agree to blood products: Yes Anes - Eval Final PreProcedure Day of Procedure 02/23/23 10:01 Patient weight: normal Heart: regular rate and rhythm Lungs: clear to auscultation Airway: Mallampati scale class III Neurological: alert and oriented Last oral intake: >/= 8 hours ASA classification: III Emergent: no Anesthetic plan: proceed Anesthesia type and monitoring: general GIVS and standard monitoring Results Review: All pre-operative results and documents have been reviewed as part of the pre-operative evaluation. Informed Consent: The patient's anesthetic plan and its attendant risks and benefits were discussed with the patient/family/POA. Questions were solicited and answers provided to the satisfaction of the patient/family/POA.
[2023-02-23 10:24] VITALS: BP 90/64; PULSE 62; RESP 24; O2SAT 95
[2023-02-23 10:34] VITALS: BP 106/74; BP 119/84; PULSE 60; PULSE 62; RESP 13; RESP 20; O2SAT 93; O2SAT 98
== END 2023-02-23 10:54 | disposition home or self-care (01) ==
PROVIDERS: PCP Family Medicine Adolescent Medicine; Visit Provider Internal Medicine Gastroenterology
PROC: 0DJD8ZZ Inspection of Lower Intestinal Tract, Via Natural or Artificial Opening Endoscopic (ICD-10-PCS; CPT 45378; principal; 2023-02-23 10:30)
DX: Z12.11 Encounter for screening for malignant neoplasm of colon (principal); Z86.010 Personal history of colon polyps; Z98.0 Intestinal bypass and anastomosis status; Z90.49 Acquired absence of other specified parts of digestive tract; Z80.0 Family history of malignant neoplasm of digestive organs; E78.00 Pure hypercholesterolemia, unspecified; J45.909 Unspecified asthma, uncomplicated; Z86.73 Personal history of transient ischemic attack (TIA), and cerebral infarction without residual deficits; Z85.46 Personal history of malignant neoplasm of prostate; Z79.82 Long term (current) use of aspirin
CPT/HCPCS: G0105; J2704; J7120

== ENCOUNTER 2023-03-22 19:06 | Emergency (ER) | payer MEDICARE, BC, SELFPAY ==
[2023-03-22 19:11] VITALS: BP 131/86; PULSE 77; RESP 18; TEMP 36.1; O2SAT 99
[2023-03-22 19:32] LABS: Appearance Urine Clear (Clear); Bacteria Urine None Seen /hpf; Bilirubin Urine Negative (Negative); Blood Urine Negative (Negative); Color Urine Yellow (Yellow); Glucose Urine UA Negative (Negative); Ketones Urine Negative (Negative); Leukocyte Esterase Ur Trace LEU/UL (Negative); Nitrate Urine Negative (Negative); Non Pathogenic Casts 0-2; Protein Urine Negative (Negative); RBC Urine 0-2 /hpf (0-2); Specific Grav Ur 1.006 (1.001-1.035); Squamous Epithelial Cell Urine None seen /hpf (Few); Urobilinogen Urine 0.2 mg/dL (<2.0); WBC Urine 0-5 /hpf
[2023-03-22 20:30] LABS: Add Urine Microscopic? YES
== END 2023-03-22 22:01 | disposition left against medical advice (07) ==
PROVIDERS: Emergency Provider Emergency Medicine; PCP Family Medicine Adolescent Medicine
DX: Z53.21 Procedure and treatment not carried out due to patient leaving prior to being seen by health care provider (principal)
CPT/HCPCS: 81001; 99199

== ENCOUNTER 2023-03-26 09:28 | Emergency (ER) | payer MEDICARE, BC, SELFPAY ==
[2023-03-26 09:35] VITALS: BP 103/70; PULSE 109; RESP 18; TEMP 36.6; O2SAT 98
--- NOTE | 2023-03-26 09:47 | ED.MALEGU ---
HPI - Male Genitourinary General Chief complaint: Urogenital-Male Stated complaint: trouble urinating Time Seen by Provider: 03/26/23 09:47 Source: patient Mode of arrival: ambulatory Limitations: no limitations History of Present Illness HPI Narrative: 78 years old white male is status post prostatic biopsy, unable to urinate since March 24 with lower abdominal pain and distention. He denies any fever or chills or nausea or vomiting. Related Data Home Medications Medication Instructions Recorded Confirmed paroxetine HCl 40 mg tablet 40 mg PO QAM 12/10/21 02/23/23 Allergies Allergy/AdvReac Type Severity Reaction Status Date / Time No Known Allergies Allergy Mild Verified 03/26/23 09:40 Review of Systems Review of Systems: All systems reviewed & are unremarkable except as noted in HPI and below PMFSH Past Medical History Medical History Asthma Brain TIA Family hx of colon cancer Hx of back injury Hx of colonic polyp Prostate cancer Pure hypercholesterolemia, unspecified Surgical History Surgical History History of colon resection Hx of hernia repair Family History Family History Father Acute myocardial infarction Mother Carcinoma of colon, Onset Age: 83 Sibling Carcinoma of colon, Onset Age: 48 Social History Social History Smoking status: Never smoker Second hand tobacco smoke exposure: No Alcohol intake: never Substance use: never Substance use type: does not use Lack of Transportation: No Lack of Food: Never True Current Housing: I Have Housing Concerned About Future Housing: No Difficulty Paying Gas/Electric Bills: No Difficulty Paying for Meds: No Currently Unemployed: No Education: Trade/Vocational Certificate Difficulty w/ Childcare or Family Care: No Living arrangements: with family Occupation/Education: retired Gender identity (if verbalized by the patient): Male Sexual Orientation (if Verbalized by the Patient): Straight or Heterosexual Spiritual care concerns: No Agree to blood products: Yes Exam Narrative: General appearance: Well-developed, well-nourished, in pain, restless Skin: Normal color Head: Normocephalic, nontraumatic Eyes: Clear conjunctiva ENT: Oropharynx normal, ears normal, nose normal Neck: Supple, nontender Chest and respiratory: Airway patent, no respiratory distress, no accessory muscle use Heart: Regular rate/rhythm Abdomen: Suprapubic distention and tenderness, no organomegaly, quiet bowel sounds Vascular: Normal peripheral pulses, normal capillary refill. Musculoskeletal: Normal range of motion, nontender back Neurologic: Alert and oriented ?3, CLIENT BUSINESS MANAGER is normal as tested, no gross motor deficit Course Reevaluation(s) Reevaluation #1: Feeling much better after Vasquez catheter placement, 1000 urine output. Date: 03/26/23 Time: 10:44 Vital Signs Vital signs: Vital Signs Temperature 36.6 C 03/26/23 09:35 Pulse Rate 109 H 03/26/23 09:35 Respiratory Rate 18 03/26/23 09:35 Blood Pressure 103/70 03/26/23 09:35 Pulse Oximetry 98 03/26/23 09:35 Oxygen Delivery Room Air 03/26/23 09:35 Temperature 36.6 C 03/26/23 09:35 Pulse Rate 61 03/26/23 10:50 Respiratory Rate 18 03/26/23 10:50 Blood Pressure 118/81 03/26/23 10:50 Pulse Oximetry 99 03/26/23 10:50 Oxygen Delivery Room Air 03/26/23 09:35 MDM - Male Genitourinary MDM Narrative Medical decision making narrative: Patient p
[2023-03-26 09:53] VITALS: BP 122/92; PULSE 80; RESP 18; O2SAT 98
[2023-03-26 10:19] LABS: Appearance Urine Clear (Clear); Bacteria Urine None Seen /hpf; Bilirubin Urine Negative (Negative); Blood Urine 1+ (Negative); Color Urine Yellow (Yellow); Glucose Urine UA Negative (Negative); Ketones Urine Negative (Negative); Leukocyte Esterase Ur Negative LEU/UL (Negative); Nitrate Urine Negative (Negative); Non Pathogenic Casts 0-2; Protein Urine Negative (Negative); RBC Urine 51-100 /hpf (0-2); Specific Grav Ur 1.011 (1.001-1.035); Squamous Epithelial Cell Urine None seen /hpf (Few); WBC Urine 0-5 /hpf; pH Urine 6.5 (5.0-9.0)
--- NOTE | 2023-03-26 10:25 | PC.NURSE ---
Catheter unclamped and draining by this nurse
[2023-03-26 10:36] LABS: Add Urine Microscopic? YES
[2023-03-26 10:50] VITALS: BP 118/81; PULSE 61; RESP 18; O2SAT 99
[2023-03-26 11:10] VITALS: BP 127/72; PULSE 63; RESP 18; O2SAT 100
== END 2023-03-26 11:11 | disposition home or self-care (01) ==
PROVIDERS: Emergency Provider Emergency Medicine; PCP Family Medicine Adolescent Medicine
DX: R33.9 Retention of urine, unspecified (principal); J45.909 Unspecified asthma, uncomplicated; E78.00 Pure hypercholesterolemia, unspecified; Z86.73 Personal history of transient ischemic attack (TIA), and cerebral infarction without residual deficits; Z86.010 Personal history of colon polyps; Z85.46 Personal history of malignant neoplasm of prostate; Z90.49 Acquired absence of other specified parts of digestive tract
CPT/HCPCS: 51702; 81001; 99283

== ENCOUNTER 2023-08-21 17:20 | Inpatient (IN) | payer MEDICARE, SELFPAY ==
--- NOTE | ~2023-08-21 | CT_ITS ---
EXAMINATION: CT brain wo con DATE: 08/21/2023 17:30 INDICATION: cva? . TECHNIQUE: Computed tomography (CT) of the head was performed without intravenous contrast. The mA wa s adjusted according to patient size. Iterative reconstruction technique was employed. The dose-lengt h product was 605.33 mGy-cm. COMPARISON: 12/03/2021. FINDINGS: No acute intracranial hemorrhage or extra-axial fluid collection. No hydrocephalus, mass, or herniation. No acute ischemic infarct. Unremarkable dural venous sinus attenuation. No acute osseous abnormality. The aerated spaces are clear. Moderate atrophy and chronic white matter change. Atherosclerotic intracranial calcification. IMPRESSION: No acute intracranial process. Results reported telephonically to Dr. Navarro by Dr. Ramos at 5:38 PM on 08/21/2023. Reviewed, dictated and finalized at location K. TER PERSON IMPRESSION: No acute intracranial process. Results reported telephonically to Dr. Navarro by Dr. Ramos at 5:38 PM on 07/29.
--- NOTE | ~2023-08-21 | CT_ITS ---
EXAMINATION: CTA brain carotid DATE: 08/21/2023 17:46 INDICATION: neuro symptoms TECHNIQUE: Computed tomographic angiography (CTA) of the head and neck was performed with 100 mL Omni paque-350 intravenous contrast. Automated exposure control and iterative reconstruction technique wer e employed. The dose-length product was 1231.01 mGy-cm. Maximum intensity projection and volume rend ered 3D-reconstructions were created by the technologist on a separate workstation. COMPARISON: CT brain, same date. FINDINGS: Motion artifact at multiple levels, overall the examination is diagnostic. CTA HEAD: No large vessel occlusion, aneurysm, high flow vascular malformation, nidus or extravasation. Hypopla stic right P1 segment with persistent origin of the right PORT TRAFFIC MANAGER. Patent cerebral veins. Symmetric parenchymal enhancement. Bilateral inferior maxillary mucosal thickening. CTA NECK: Aortic arch and proximal great vessels: Mild arch calcification. Normal arch anatomy. Right common carotid, carotid bifurcation, and internal carotid artery: Minimal noncalcified plaque a t the bifurcation.There is 0% stenosis of the proximal right internal carotid artery relative to norm al distal artery lumen diameter (NASCET criteria). Left common carotid, carotid bifurcation, and internal carotid artery: Minimal, but ulcerative appear ing noncalcified plaque at the bifurcation.There is 0% stenosis of the proximal left internal carotid artery relative to normal distal artery lumen diameter (NASCET criteria). Vertebral arteries: No significant plaque or stenosis. Other findings: Enlarged mediastinal lymph nodes. Clear lungs. Degenerative changes in the cervical s pine. IMPRESSION: No large vessel intracranial occlusion, high-grade intracranial stenosis, or aneurysm. No carotid or vertebral artery occlusion, dissection, or significant stenosis. Minimal but ulcerated appearing noncalcified plaque at the left carotid bifurcation. There is no lymphadenopathy. Reviewed, dictated and finalized at location K. ECT GEOLOGIST IMPRESSION: No large vessel intracranial occlusion, high-grade intracranial stenosis, or an eurysm. No carotid or vertebral artery occlusion, dissection, or significant stenosis. Minimal but ulcerated appearing noncalcified plaque at the left carotid bifurca tion. There is no lymphadenopathy.
--- NOTE | ~2023-08-21 | XR_ITS ---
EXAMINATION: XR chest 1V portable Exam Date/Time: 08/21/2023 18:20 DISABILITY INSURANCE HEARING OFFICER HISTORY: ams Comparison: 12/29/2021. RESULT: Lines, tubes, and devices: None. Lungs and pleura: Senescent/emphysematous changes. Scattered pleural calcifications. No focal consol idation, pleural effusion, or pneumothorax. Cardiomediastinal silhouette: Stable. Other: No acute osseous or upper abdominal finding. IMPRESSION: No acute cardiopulmonary process. Reviewed, dictated and finalized at location K. BILITY INSURANCE HEARING OFFICER
--- NOTE | ~2023-08-21 | MR_ITS ---
EXAMINATION: MR brain/brain stem wo con DATE: 08/22/2023 09:35 INDICATION: Transient ischemic attack. TECHNIQUE: Magnetic resonance imaging (MRI) of the brain and brainstem was performed without intraven ous contrast. COMPARISON: Brain MRI 12/04/2021, head CT 08/21/2023 FINDINGS: There are small acute infarct in the left frontoparietal espinoza radiata. There are scattere d areas of nonspecific increased T2-weighted signal intensity in the cerebral white matter and brittaney. There is no abnormal mass lesion or intracranial hemorrhage. The ventricles are normal in size. The o rbits are normal. There is mild mucosal thickening in the paranasal sinuses. The mastoid air cells ar e normal. IMPRESSION: 1. Small acute infarct in the left frontoparietal espinoza radiata. 2. Moderate nonspecific cerebral white matter disease and pontine disease, which likely represents ch ronic small vessel ischemic disease, slightly worsened from 12/04/2021. Reviewed, dictated and finalized at location A. FILLER IMPRESSION: 1. Small acute infarct in the left frontoparietal espinoza radiata. 2. Moderate nonspecific cerebral white matter disease and pontine disease, whic h likely represents chronic small vessel ischemic disease, slightly worsened fr om 12/04/2021.
--- NOTE | 2023-08-21 17:22 | ECG_ITS ---
Measurements Intervals [place] Rate: 56 P: 59 AL: 108 QRS: -33 QRSD: 100 T: -76 QT: 454 QTc: 440 Interpretive Statements SINUS BRADYCARDIA WITH SHORT AL INTERVAL WITH OCCASIONAL SUPRAVENTRICULAR PREMATURE COMPLEXES BASELINE ARTIFACT LEFT AXIS DEVIATION [QRS AXIS < -30] NONSPECIFIC ST ABNORMALITY BORDERLINE ECG COMPARED TO ECG 12/03/2021 19:33:54 NO SIGNIFICANT CHANGES Electronically Signed On 08-21-2023 18:30:56 ENVIRONMENTAL WEB CRAWLER by Fermín Boyer M.D.
--- NOTE | 2023-08-21 17:25 | ED.AMS ---
HPI - Altered Mental Status General Chief Complaint: Altered Mental Status Stated Complaint: Altered mental status Time Seen by Provider: 08/21/23 17:24 Source: patient Mode of arrival: ambulatory Limitations: no limitations History of Present Illness HPI narrative: 78-year-old male with past medical history of TIA presents with concern for a stroke. At 4:55 p.m. he acutely had garbled and nonsensical speech. family states that he was sitting words that were inappropriate for the context (e.g. saying architected instead of organized ) and also had word-finding difficulty. At times he had difficulty speaking and at others it seemed that he didn't understand the words spoken to him. He had a mini stroke many years ago. No history of diabetes mellitus. He is on atorvastatin. Related Data Home Medications Medication Instructions Recorded Confirmed bethanechol chloride 25 mg tablet 25 mg PO BID 08/22/23 08/22/23 Allergies Allergy/AdvReac Type Severity Reaction Status Date / Time No Known Allergies Allergy Mild Verified 03/28/23 15:09 [facility] Past Medical History Medical History Asthma Brain TIA Family hx of colon cancer Hx of back injury Hx of colonic polyp Insomnia Prostate cancer Pure hypercholesterolemia, unspecified Surgical History Surgical History History of colon resection Hx of hernia repair Family History Family History Father Acute myocardial infarction Mother Carcinoma of colon, Onset Age: 83 Sibling Carcinoma of colon, Onset Age: 48 Social History Social History Smoking status: Never smoker Second hand tobacco smoke exposure: No Alcohol intake: never Substance use: never Substance use type: does not use Do You Feel Safe in your Home?: Yes Lack of Transportation: No Lack of Food: Never True Current Housing: I Have Housing Concerned About Future Housing: No Difficulty Paying Gas/Electric Bills: No Difficulty Paying for Meds: No Currently Unemployed: No Education: Trade/Vocational Certificate Difficulty w/ Childcare or Family Care: No Living arrangements: with family Occupation/Education: retired Gender identity (if verbalized by the patient): Male Sexual Orientation (if Verbalized by the Patient): Straight or Heterosexual Spiritual care concerns: No Agree to blood products: Yes Exam Narrative: GENERAL: Well-appearing, well-nourished, and in no acute distress. HEAD: Normocephalic, atraumatic. EYES: Non injected, non icteric. Horizontal EOMI. Visual webb without deficit. ENT: Nares clear, no rhinorrhea or epistaxis. NECK: Supple. CHEST: Speaking in complete sentences No respiratory distress. HEART: Bradycardic rate and rhythm. . ABDOMEN: Soft, nondistended. EXTREMITIES: Normal range of motion. No edema. SKIN: Warm, dry, no rash. NEURO: No focal deficits. Alert and oriented x3. No drift in extremities x4. No extinction. No loss of nasolabial fold. Speaks without dysarthria. Can name objects with clear speech and answers questions about a standardized picture, able to tell a story. Answers all questions appropriately. No ataxia on heel-braun or [id number]. Follows commands. PSYCH: Normal mood and affect. Course Vital Signs Vital signs: Vital Signs Pulse Rate 59 L 08/21/23 17:42 Respiratory Rate 23 H 08/21/23 17:42 Blood Pressure 116/74 08/21/23 17:42 Pulse Oximetry 100 08/21/23 17:42 Oxygen Delivery Room Air 08/21/23 17:42 Temperature 97.4 F L 08/23/23 06:00 Pulse Rate 55 L 08/23/23 06:00 Respiratory Rate 20 08/23/23 06:00 Blood Pressure 114/77 08/23/23 06:00 Pulse Oximetry 99 08/23/23 06:00 Oxygen Delivery Room Air 08/23/23 08:00 MDM - Altered Mental Status
[2023-08-21 17:42] VITALS: BP 116/74; PULSE 59; RESP 23; O2SAT 100
[2023-08-21 17:44] LABS: Estimated Glomerular Filt Rate > 60
[2023-08-21 17:45] LABS: Glucose Point of Care 103 mg/dl (65-105)
[2023-08-21 17:49] VITALS: BP 116/74; PULSE 61; RESP 25; O2SAT 100
[2023-08-21 17:54] LABS: Basophils Percent Auto 0.6 % (0.2-1.2); Eosinophils Absolute Auto 0.2 K/mm3 (0-0.3); Eosinophils Percent Auto 2.3 % (0-4.4); Hematocrit 38.3 % (42.0-52.0); Hemoglobin 12.6 g/dL (14.0-18.0); Immature Granulocyte Absolute 0.02 K/mm3 (0.00-0.031); Immature Granulocyte Percent A 0.3 % (0-0.5); Lymphocytes Absolute Auto 1.44 K/mm3 (0.9-3.2); Lymphocytes Percent Auto 19.8 % (18.3-44.2); Mean Corpuscular HGB Conc 32.9 g/dl (32-36); Mean Corpuscular Hemoglobin 29.4 pg (26-34); Mean Corpuscular Volume 89.3 fl (80-100); Mean Platelet Volume 9.9 fl (7.4-10.4); Monocytes Absolute Auto 0.7 K/mm3 (0.1-0.6); Monocytes Percent Auto 9.1 % (2.6-8.5); Neutrophils Absolute Auto 4.9 K/mm3 (1.3-6.7); Neutrophils Percent Auto 67.9 % (45.5-73.1); Platelet Count Result 255 k/mm3 (150-375); Red Blood Count 4.29 M/mm3 (4.6-6.20); Red Cell Distribution Width 13.2 % (11.5-14.5); White Blood Count 7.3 K/mm3 (4.5-10.0)
[2023-08-21 17:55] VITALS: O2SAT 100
[2023-08-21 18:04] LABS: Alanine Aminotransferase 14 U/L (6-50); Albumin Level 3.9 g/dL (3.5-5.1); Alkaline Phosphatase 90 U/L (38-126); Anion Gap 11 mmol/L (8-16); Aspartate Amino Transferase 24 U/L (17-59); Bilirubin,Total 0.7 mg/dL (0.2-1.3); Blood Urea Nitrogen 15 mg/dL (9-20); Calcium 9.1 mg/dL (8.4-10.2); Carbon Dioxide 23 mmol/L (22-30); Chloride 102 mmol/L (98-107); Estimated CRCL calculation 68 ml/min; Estimated Glomerular Filt Rate > 60; Glucose 100 mg/dL (65-110); Potassium 3.5 mmol/L (3.4-5.0); Sodium 136 mmol/L (137-145)
[2023-08-21 18:05] LABS: INR 1.1; Partial Thromboplastin Time 34.3 SECONDS (22.3-36.8); Prothrombin Time 14.3 Seconds (11.1-14.7)
[2023-08-21 18:15] LABS: Troponin I < 0.012 ng/mL (0.000-0.034)
[2023-08-21 19:27] VITALS: BP 125/73; PULSE 53; RESP 23; O2SAT 100
[2023-08-21] MEDS: ASPIRIN 81 MG CHEWABLE TABLET 324 MG PO (20:13)
[2023-08-21 20:25] LABS: Cholesterol 121 mg/dL (0-200); HDL Direct 31 mg/dL; Triglycerides 107 mg/dL (<150)
[2023-08-21 20:35] LABS: LDL Cholesterol Direct 73 mg/dL
[2023-08-21 20:38] LABS: Hemoglobin A1C 5.6 % (<5.7)
[2023-08-21 21:05] VITALS: BP 134/83; PULSE 72; RESP 17; TEMP 36.6; O2SAT 100
--- NOTE | 2023-08-21 22:08 | PM.IMHP ---
H&P: HPI History of Present Illness Date/Time: 08/21/23 22:08 Chief Complaint: Altered mental status. This is a 78-year-old male patient with a past medical history of TIAs hyperlipidemia asthma who came to the emergency room because of the altered mental status. Patient said that he was confused this afternoon. Patient also have some slurred speech. The symptoms started around 5:00 p.m. this afternoon but by the time the patient came to emergency room his symptoms got resolved. Patient is awake alert not in any acute distress. Denies any fever chills dizziness lightheadedness no blurred vision for chest pain or shortness of breath no cough no nausea no vomiting no diarrhea no dysuria no muscle and joint pains. Vital signs in the emergency room was stable. CBC showed WBC count of 7.3 hemoglobin 12.6 hematocrit 38.3 platelet count 255. INR 1.1. Sodium 136 potassium 3.5 chloride 102 carbon dioxide 23 BUN 15 creatinine 0.90. Glucose 100. Troponin was unremarkable. Urinalysis unremarkable for bacteriuria and pyuria. CT head showed no acute intracranial process. CTA head and neck showed no large vessel intracranial occlusion, high-grade intracranial stenosis or aneurysm. No carotid or vertebral artery occlusion dissection or significant stenosis. Minimal but ulcerated appearing noncalcified plaque in the left carotid bifurcation. There is no lymphadenopathy. Chest x-ray showed no acute cardiopulmonary abnormality. EKG showed sinus bradycardia with short OR interval with occasional supraventricular premature complexes. Left axis deviation. Patient was given aspirin and Plavix in the emergency room. Neurology consultation was called from the emergency room. Review of Systems Review of Systems: A 12 point review of system is done initially was admitted dictated in the history of present treatment. [facility] Past Medical History Medical History (Updated 03/28/23 @ 15:56 by Hussein Davis MD) Asthma Brain TIA Family hx of colon cancer Hx of back injury Hx of colonic polyp Insomnia Prostate cancer Pure hypercholesterolemia, unspecified Surgical History Surgical History History of colon resection Hx of hernia repair Family History Family History Father Acute myocardial infarction Mother Carcinoma of colon, Onset Age: 83 Sibling Carcinoma of colon, Onset Age: 48 Social History Social History Smoking status: Never smoker Second hand tobacco smoke exposure: No Alcohol intake: never Substance use: never Substance use type: does not use Lack of Transportation: No Lack of Food: Never True Current Housing: I Have Housing Concerned About Future Housing: No Difficulty Paying Gas/Electric Bills: No Difficulty Paying for Meds: No Currently Unemployed: No Education: Trade/Vocational Certificate Difficulty w/ Childcare or Family Care: No Living arrangements: with family Occupation/Education: retired Gender identity (if verbalized by the patient): Male Sexual Orientation (if Verbalized by the Patient): Straight or Heterosexual Spiritual care concerns: No Agree to blood products: Yes Meds Home Medications and Allergies Home Medications Medication Instructions Recorded Confirmed Type aspirin 81 mg tablet,delayed 81 mg PO QAM #30 tabs 12/04/21 03/28/23 Rx release diclofenac sodium 75 mg 75 mg PO BID PRN pain #60 tabs 12/07/22 03/28/23 Rx tablet,delayed release pantoprazole 40 mg tablet,delayed 40 mg PO BID #180 tabs 12/27/22 03/28/23 Rx release tamsulosin 0.4 mg capsule See Rx Instructions .Route 12/27/22 03/28/23 Rx .COMPLEX #180 caps oxybutynin chloride 5 mg tablet 5 mg PO BID #180 tabs 01/14/23 03/28/23 Rx escitalopram oxalate 20 mg tablet 20 mg PO DAILY #90 tabs 05/02/23 Rx atorvastatin 80 mg tabl
[2023-08-21 22:10] VITALS: BP 134/76; PULSE 59; RESP 18; TEMP 36.1; O2SAT 100
[2023-08-21 22:24] VITALS: BMI 26.0
--- NOTE | 2023-08-21 22:28 | ADMGEN ---
This patient, Vamsi Waite, was admitted to 3 [facility] Surg Room 322-02. Patient/family oriented to hospital policies and general routines including ID bracelet, bed and alarms, visiting hours, pain management, procedures, bathroom and other care routines, personal items, smoking policy, room service/diet, and visiting hours. Information on how to activate the Rapid Response Team has been discussed. Patient/Family are encouraged to report perceived risks to care and to ask questions if they do not understand what they are told or what they should do.
[2023-08-21 23:56] LABS: Appearance Urine Clear (Clear); Bacteria Urine 4+ /hpf; Bilirubin Urine Negative (Negative); Blood Urine Negative (Negative); Color Urine Yellow (Yellow); Glucose Urine UA Negative (Negative); Ketones Urine Negative (Negative); Leukocyte Esterase Ur 1+ LEU/UL (Negative); Mucus Urine Present /lpf; Need Manual Microscopic Reviewed; Nitrate Urine Negative (Negative); Non Pathogenic Casts 0-2; Protein Urine Negative (Negative); RBC Urine 0-2 /hpf (0-2); Squamous Epithelial Cell Urine None seen /hpf (Few)
--- NOTE | 2023-08-22 | ECHO_ITS ---
Patient Info Name: Vamsi Waite Age: 78 years : 1945 Gender: Male Ht: 73 in Wt: 195 lbs BSA: 2.14 m2 HR: 64 bpm BP: 125 / 77 mmHg Heart Rhythm: Sinus Rhythm Technical Quality: Fair Exam Date: 08/22/2023 11:52 AM Exam Location: Echo Lab Exam Room: [facility] Patient Status: Outpatient Admit Date: 08/21/2023 Staff Ordering Physician: Juliano Nichols MD Drop Machine Operator: Lara Pringle RDCS Attending Provider: Juliano Nichols MD Referring Physician: Simone BAUER; Exam Type: CA echo doppler color flow Study Info Indications - TIA Complete two-dimensional, color flow and Doppler transthoracic echocardiogram is performed. Summary 1. Complete two-dimensional, color flow and Doppler transthoracic echocardiogram is performed. 2. Normal left ventricular size and systolic function with grade 1 diastolic noncompliance. 3. Mildly sclerotic aortic valve with well maintained leaflet excursion. 4. Modest left atrial enlargement. 5. Comparison with examination done in this laboratory November of 2021 the findings are unchanged. Left Ventricle Left ventricular chamber dimension is normal. Left ventricular systolic function is normal, estimated at 60-65%. The left ventricular diastolic function is grade I diastolic dysfunction. Right Ventricle Right ventricular chamber dimension is normal. Left Atria Left atrial chamber dimension is mildly enlarged. Right Atria Right atrial chamber dimension is normal. Aortic Valve The aortic valve is trileaflet. There is mild aortic valve sclerosis. Pulmonic Valve The pulmonic valve is normal. Mitral Valve The mitral valve has thickened leaflets. Tricuspid Valve The tricuspid valve leaflets are normal. Pericardium/Pleural The pericardium appears normal. Aorta The aortic root size at the sinus of Valsalva is normal. Left Ventricular Outflow Tract Name Value Normal LVOT 2D LVOT Diameter 2.1 cm LVOT Doppler LVOT Peak Gradient 4 mmHg LVOT Mean Gradient 2 mmHg LVOT VTI 20 cm LVOT VTI/AV VTI Ratio 1.0 LVOT Stroke Volume 68 ml LVOT CO 13.2 l/min LVOT CI 6.2 l/min/m2 Pulmonic Valve Name Value Normal PV Doppler PV Peak Gradient 2 mmHg Mitral Valve Name Value Normal MV Doppler MV Decel Moca 130 cm/s2 MV PHT 108 ms MV Area (PHT) 2.0 cm2 4.0-5.0 MV Diastolic Function MV E Peak Ve
[2023-08-22 00:01] LABS: Add Urine Microscopic? YES
[2023-08-22 06:00] VITALS: BP 125/77; PULSE 60; RESP 18; TEMP 36.5; O2SAT 98
[2023-08-22 07:58] LABS: Glucose Point of Care 90 mg/dl (65-105)
[2023-08-22 08:00] VITALS: PULSE 60; RESP 18; O2SAT 98
[2023-08-22 09:06] VITALS: O2SAT 98
[2023-08-22] MEDS: oxyBUTYnin CHLORIDE 5 MG TABLET PO ×2 (10:16→20:35)
[2023-08-22] MEDS: CLOPIDOGREL BISULFATE 75 MG TABLET PO (10:16)
[2023-08-22] MEDS: ASPIRIN 81 MG ENTERIC TABLET PO (10:16)
[2023-08-22] MEDS: ESCITALOPRAM OXALATE 10 MG TABLET 20 MG PO (10:17)
[2023-08-22] MEDS: PANTOPRAZOLE 40 MG TABLET PO ×2 (10:17→20:36)
[2023-08-22] MEDS: TAMSULOSIN HCL 0.4 MG CAPSULE PO (10:17)
[2023-08-22] MEDS: BETHANECHOL CHLORIDE 25 MG TABLET PO ×2 (10:20→16:49)
[2023-08-22 11:29] LABS: Glucose Point of Care 116 mg/dl (65-105)
[2023-08-22 14:00] VITALS: BP 102/62; PULSE 60; RESP 18; TEMP 36.5; O2SAT 98
--- NOTE | 2023-08-22 15:12 | PM.IMPN ---
Progress Note: A&P Assessment and Plan (1) CVA (cerebral vascular accident): Code(s): I63.9 - Cerebral infarction, unspecified Status: Acute (2) Benign prostatic hyperplasia with lower urinary tract symptoms: Code(s): N40.1 - Benign prostatic hyperplasia with lower urinary tract symptoms Status: Acute Plan CVA Initial CT head no acute issues MRI does show Small acute infarct in the left frontoparietal espinoza radiata. Started on Plavix daily Resume patient's ASA and atorvastatin Neurology consultation Consult Cardiology to have event monitor placed at discharge ECHO pending Previous history of TIA Lipid panel pending PT/OT UTI?? UA positive for leukocytes Ceftriaxone pending cultures BPH Resumed oxybutynin and Flomax monitor for urinary retention Code status: Full code per patient DVT prophylaxis: SCD's Stress ulcer prophylaxis: Protonix 40 daily PT/OT notes: PT/OT pending Disposition: Patient continues admission to the medical unit for further evaluation and treatment of acute infarct neurology and Cardiology both consulted for any further recommendations patient started on Plavix, ASA and atorvastatin with PT/OT pending. Echocardiogram pending requesting event monitor at discharge. Time Spent With Patient Time with patient: 25 - 35 minutes Subjective Date/time seen: 08/22/23 15:12 Interval history: H&P (Medical Record) Chief Complaint: Altered mental status. This is a 78-year-old male patient with a past medical history of TIAs hyperlipidemia asthma who came to the emergency room because of the altered mental status.? Patient said that he was confused this afternoon.? Patient also have some slurred speech.? The symptoms started around 5:00 p.m. this afternoon but by the time the patient came to emergency room his symptoms got resolved.? Patient is awake alert not in any acute distress.? Denies any fever chills dizziness lightheadedness no blurred vision for chest pain or shortness of breath no cough no nausea no vomiting no diarrhea no dysuria no muscle and joint pains.? Vital signs in the emergency room was stable.? CBC showed WBC count of 7.3 hemoglobin 12.6 hematocrit 38.3 platelet count 255.? INR 1.1.? Sodium 136 potassium 3.5 chloride 102 carbon dioxide 23 BUN 15 creatinine 0.90.? Glucose 100.? Troponin was unremarkable.? Urinalysis unremarkable for bacteriuria and pyuria.? CT head showed no acute intracranial process.? CTA head and neck showed no large vessel intracranial occlusion, high-grade intracranial stenosis or aneurysm.? No carotid or vertebral artery occlusion dissection or significant stenosis.? Minimal but ulcerated appearing noncalcified plaque in the left carotid bifurcation.? There is no lymphadenopathy.? Chest x-ray showed no acute cardiopulmonary abnormality.? EKG showed sinus bradycardia with short CO interval with occasional supraventricular premature complexes.? Left axis deviation.? Patient was given aspirin and Plavix in the emergency room.? Neurology consultation was called from the emergency room. 08/22: Patient alert and oriented and appears back to baseline no deficits at this time in all extremities appropriately no facial drooping. Small acute infarct in the left frontal partial espinoza radiata, added plavix 75mg daily on ASA and atorvastatin 80mg. PT/OT pending and neuro consulted. ECHO pending, cardiology consulted for event monitor at discharge. UA was positive for leukocytes will treat empirically with antibiotic therapy pending cultures. Review of Systems Review of Systems: All systems reviewed & are unremarkable except as noted in HPI and below Exam Narrative: Physical Exam: GENERAL: Pleasant 78 year old male alert and oriented x 3. No acute distress. Well-nourished. EYES: EOMI. No scleral icterus. PERRLA. HEENT: Moist mucous membranes. No cervical lymphadenopathy. Symmetrical LUNGS: Clear to ausc
[2023-08-22 16:32] LABS: Glucose Point of Care 96 mg/dl (65-105)
--- NOTE | 2023-08-22 17:51 | WPDNEURCNPN ---
Assessment and Plan Assessment and plan (1) CVA (cerebral vascular accident): Code(s): I63.9 - Cerebral infarction, unspecified Status: Acute Plan History is suggestive of left hemispheric dysfunction. Clinically I do not find any focal deficit. A CT angiogram of the head and neck was performed did not show any significant abnormality. However MRI of the brain was performed that showed the acute infarct in the left coronary radiata on the diffusion scanning sequence. The T2 FLAIR sequence does show some white matter changes however the age of this would be difficult to tell without the diffusion scanning. The patient should be treated with antiplatelets and statins. Consult date: 08/23/23 Reason for consult: The patient is 78-year-old right-handed white male seen for initial consultation today. He had hip spell where he could not talk or speak clearly for few minutes and thereafter it cleared up he has had a similar spell in 2021. His daughter and were present the time of evaluation. It appears from the description that he was probably not confused but the not too certain about it. The set in no lapse in his awareness or fall or seizure-like activity described. He has not had any weakness in the upper lower limbs nor any loss of vision. He HPI: Vamsi Waite is a 78 year old male Review of Systems Review of Systems: All systems reviewed & are unremarkable except as noted in HPI and below PMFSH Past Medical History Medical History (Updated 08/22/23 @ 15:19 by Eunice Soria, CASIMIRO) Asthma Brain TIA Family hx of colon cancer Hx of back injury Hx of colonic polyp Insomnia Prostate cancer Pure hypercholesterolemia, unspecified Surgical History Surgical History History of colon resection Hx of hernia repair Family History Family History Father Acute myocardial infarction Mother Carcinoma of colon, Onset Age: 83 Sibling Carcinoma of colon, Onset Age: 48 Social History Social History Smoking status: Never smoker Second hand tobacco smoke exposure: No Alcohol intake: never Substance use: never Substance use type: does not use Do You Feel Safe in your Home?: Yes Lack of Transportation: No Lack of Food: Never True Current Housing: I Have Housing Concerned About Future Housing: No Difficulty Paying Gas/Electric Bills: No Difficulty Paying for Meds: No Currently Unemployed: No Education: Trade/Vocational Certificate Difficulty w/ Childcare or Family Care: No Living arrangements: with family Occupation/Education: retired Gender identity (if verbalized by the patient): Male Sexual Orientation (if Verbalized by the Patient): Straight or Heterosexual Spiritual care concerns: No Agree to blood products: Yes Meds Home Medications and Allergies Home Medications Medication Instructions Recorded Confirmed Type aspirin 81 mg tablet,delayed 81 mg PO QAM #30 tabs 12/04/21 08/22/23 Rx release diclofenac sodium 75 mg 75 mg PO BID PRN pain #60 tabs 12/07/22 08/22/23 Rx tablet,delayed release pantoprazole 40 mg tablet,delayed 40 mg PO BID #180 tabs 12/27/22 08/22/23 Rx release tamsulosin 0.4 mg capsule See Rx Instructions .Route 12/27/22 08/22/23 Rx .COMPLEX #180 caps oxybutynin chloride 5 mg tablet 5 mg PO BID #180 tabs 01/14/23 08/22/23 Rx escitalopram oxalate 20 mg tablet 20 mg PO DAILY #90 tabs 05/02/23 08/22/23 Rx atorvastatin 80 mg tablet 80 mg PO HS #90 tabs 08/15/23 08/22/23 Rx bethanechol chloride 25 mg tablet 25 mg PO BID 08/22/23 08/22/23 History Allergies Allergy/AdvReac Type Severity Reaction Status Date / Time No Known Allergies Allergy Mild Verified 03/28/23 15:09 Vital Signs Vital Signs - 24 hr 08/21/23 17:55 08/21/23 19:27 08/21/23 21:05 Temperatur
[2023-08-22 19:00] VITALS: BP 113/73; PULSE 88; RESP 16; TEMP 36.5; O2SAT 98
[2023-08-22 20:07] LABS: Glucose Point of Care 163 mg/dl (65-105)
[2023-08-22] MEDS: ATORVASTATIN 40 MG TABLET 80 MG PO (20:35)
[2023-08-22 20:40] VITALS: PULSE 88; RESP 16; O2SAT 98
[2023-08-23 06:00] VITALS: BP 114/77; PULSE 55; RESP 20; TEMP 36.3; O2SAT 99
[2023-08-23] MEDS: ESCITALOPRAM OXALATE 10 MG TABLET 20 MG PO (09:19)
[2023-08-23] MEDS: BETHANECHOL CHLORIDE 25 MG TABLET PO (09:19)
[2023-08-23] MEDS: PANTOPRAZOLE 40 MG TABLET PO (09:19)
[2023-08-23] MEDS: ASPIRIN 81 MG ENTERIC TABLET PO (09:19)
[2023-08-23] MEDS: oxyBUTYnin CHLORIDE 5 MG TABLET PO (09:19)
[2023-08-23] MEDS: TAMSULOSIN HCL 0.4 MG CAPSULE PO (09:19)
[2023-08-23] MEDS: CLOPIDOGREL BISULFATE 75 MG TABLET PO (09:23)
--- NOTE | 2023-08-23 11:57 | PM.DS ---
DS: Admitting Diagnosis Discharge Date 08/23/2023 Admitting Diagnosis CVA DS: Discharge Diagnosis Discharge Diagnosis (1) CVA (cerebral vascular accident): Code(s): I63.9 - Cerebral infarction, unspecified Status: Acute (2) Benign prostatic hyperplasia with lower urinary tract symptoms: Code(s): N40.1 - Benign prostatic hyperplasia with lower urinary tract symptoms Status: Acute Plan CVA Initial CT head no acute issues MRI does show Small acute infarct in the left frontoparietal espinoza radiata. Started on Plavix daily Resume patient's ASA and atorvastatin Neurology consultation Consult Cardiology to have event monitor placed at discharge ECHO pending Previous history of TIA Lipid panel pending PT/OT UTI?? UA positive for leukocytes Ceftriaxone pending cultures BPH Resumed oxybutynin and Flomax monitor for urinary retention Disposition: Patient was discharged home with family patient cleared by PT OT with no lasting deficits patient appears back to baseline. Patient to have event monitor placed will follow outpatient by primary for Cardiology to rule out any arrhythmias such as atrial fibrillation. Patient was discharged on Plavix, ASA, atorvastatin and encouraged low-cholesterol diet. DS: Summary Hospital Course Reason for hospitalization: CVA Hospital Course: H&P (Medical Record) Chief Complaint: Altered mental status. This is a 78-year-old male patient with a past medical history of TIAs hyperlipidemia asthma who came to the emergency room because of the altered mental status.? Patient said that he was confused this afternoon.? Patient also have some slurred speech.? The symptoms started around 5:00 p.m. this afternoon but by the time the patient came to emergency room his symptoms got resolved.? Patient is awake alert not in any acute distress.? Denies any fever chills dizziness lightheadedness no blurred vision for chest pain or shortness of breath no cough no nausea no vomiting no diarrhea no dysuria no muscle and joint pains.? Vital signs in the emergency room was stable.? CBC showed WBC count of 7.3 hemoglobin 12.6 hematocrit 38.3 platelet count 255.? INR 1.1.? Sodium 136 potassium 3.5 chloride 102 carbon dioxide 23 BUN 15 creatinine 0.90.? Glucose 100.? Troponin was unremarkable.? Urinalysis unremarkable for bacteriuria and pyuria.? CT head showed no acute intracranial process.? CTA head and neck showed no large vessel intracranial occlusion, high-grade intracranial stenosis or aneurysm.? No carotid or vertebral artery occlusion dissection or significant stenosis.? Minimal but ulcerated appearing noncalcified plaque in the left carotid bifurcation.? There is no lymphadenopathy.? Chest x-ray showed no acute cardiopulmonary abnormality.? EKG showed sinus bradycardia with short IL interval with occasional supraventricular premature complexes.? Left axis deviation.? Patient was given aspirin and Plavix in the emergency room.? Neurology consultation was called from the emergency room. 08/22:? Patient alert and oriented and appears back to baseline no deficits at this time in all extremities appropriately no facial drooping.? Small acute infarct in the left frontal partial espinoza radiata, added plavix 75mg daily on ASA and atorvastatin 80mg.? PT/OT pending and neuro consulted.? ECHO pending, cardiology consulted for event monitor at discharge.? UA was positive for leukocytes will treat empirically with antibiotic therapy pending cultures. 08/23: Discharged Patient alert and oriented following all commands, answering questions appropriately, and moving all extremities with no deficits. Patient was discharged to home with family ambulatory on Plavix, ASA, Atorvastatin and encouraged a low cholesterol diet. Patient educated on FAST and when to seek medical treatment. Echo showed no acute issues hoever patient to be discharged with an event monitor to r/o arrhythmia such as atrial
== END 2023-08-23 04:45 | disposition home or self-care (01) | DRG 65 ==
LOC: ANHED 20:22 → ANH3MEDSUR 21:08
PROVIDERS: Emergency Medicine; Admitting Provider Internal Medicine Infectious Disease; Emergency Provider Student in an Organized Health Care Education/Training Program; PCP Family Medicine Adolescent Medicine; Visit Provider Nurse Practitioner Family
DX: I63.9 Cerebral infarction, unspecified (principal); N39.0 Urinary tract infection, site not specified; R47.81 Slurred speech; R41.82 Altered mental status, unspecified; N40.1 Benign prostatic hyperplasia with lower urinary tract symptoms; E78.5 Hyperlipidemia, unspecified; J45.909 Unspecified asthma, uncomplicated; Z79.82 Long term (current) use of aspirin; Z79.02 Long term (current) use of antithrombotics/antiplatelets; Z85.46 Personal history of malignant neoplasm of prostate
CPT/HCPCS: 70450; 70496; 70498; 70551; 71045; 80053; 80061; 81001; 82948; 83036; 84484; 85025; 85610; 85730; 87086; 87186; 93005; 93306; 97161; 97165; 99285; A9270; J0696; Q9967

== ENCOUNTER 2023-11-17 11:44 | Inpatient (IN) | payer MEDICARE, SELFPAY ==
[2023-11-17] VITALS (23 sets, daily range): BP systolic 86–154; BP diastolic 46–99; PULSE 45–94; RESP 13–24; TEMP 36.4–37; O2SAT 91–100; BMI 24.3
--- NOTE | ~2023-11-17 | CT_ITS ---
EXAMINATION: CT brain wo con DATE: 11/17/2023 13:57 INDICATION: Transient ischemic attack. Slurred speech, facial droop. History of cerebrovascular accid ent months ago. TECHNIQUE: Computed tomography (CT) of the head was performed without intravenous contrast. The mA wa s adjusted according to patient size. Iterative reconstruction technique was employed. Exam dose: 12 10.67 mGy-cm total exam DLP. COMPARISON: August 22, 2023 MR brain/brainstem August 21, 2023 CT brain FINDINGS: Despite 2 sets of images, the examination is limited by motion artifact. Bilateral carotid siphon internal carotid artery calcifications. There is nonspecific diminished atte nuation of the cerebral white matter, likely due to chronic small vessel ischemic changes. No intracranial mass lesion or hemorrhage or cerebrovascular accident is evident. No midline shift or mass effect. No subdural or epidural hematoma is detected. IMPRESSION: No acute intracranial findings Reviewed, dictated and finalized at [facility]. Reviewed, dictated and finalized at location B.
--- NOTE | ~2023-11-17 | XR_ITS ---
XR chest 2V DATE: 11/17/2023 13:59 INDICATION: Transient ischemic attack TECHNIQUE: PA and lateral views COMPARISON: August 21, 2023 portable AP chest FINDINGS: Aortic arch calcification, calcification of the descending thoracic aorta. Heart size is wi thin normal limits. No hilar or mediastinal enlargement. Pleural calcifications are noted on the right. No pulmonary infiltrate or consolidation, pleural effu peri or pulmonary vascular congestion or pneumothorax is detected. Chronic mild elevation right diaphragm. IMPRESSION: No active disease or significant change since 08/21/2023 is detected Reviewed, dictated and finalized at location B.
--- NOTE | ~2023-11-17 | MR_ITS ---
EXAMINATION: MR brain/brain stem wo/w con DATE: 11/18/2023 11:02 INDICATION: Dysarthria. Word finding difficulty. TECHNIQUE: Magnetic resonance imaging (MRI) of the brain and brainstem was performed without and with 16 mL MultiHance intravenous contrast. COMPARISON: Brain MRI 08/22/2023 FINDINGS: There is no intracranial hemorrhage, acute infarction, or abnormal intracranial mass lesion . There are scattered areas of nonspecific increased T2-weighted signal intensity in the cerebral whi te matter and brittaney. The ventricles are normal in size. The orbits are normal. There is mild mucosal t hickening in the paranasal sinuses. The mastoid air cells are normal. IMPRESSION: 1. Stable moderate nonspecific cerebral white matter disease and pontine disease, which likely repres ents chronic small vessel ischemic disease. Reviewed, dictated and finalized at location A. IMPRESSION: 1. Stable moderate nonspecific cerebral white matter disease and pontine diseas e, which likely represents chronic small vessel ischemic disease.
--- NOTE | ~2023-11-17 | CT_ITS ---
EXAMINATION: CTA brain carotid DATE: 11/17/2023 17:07 INDICATION: Stroke symptoms. Transient ischemic attack. TECHNIQUE: Computed tomographic angiography (CTA) of the head was performed with 100 mL Omnipaque-350 intravenous contrast. CTA of the neck was performed with intravenous contrast. Automated exposure co ntrol and iterative reconstruction technique were employed. The dose-length product was 1291.47 mGy-c m. Maximum intensity projection and volume rendered 3D-reconstructions were created by the technologi st on a separate workstation. COMPARISON: Head CT 11/17/2023 FINDINGS: HEAD CTA: There are scattered areas of low attenuation in the cerebral white matter. There is no intr acranial hemorrhage, acute infarction, or abnormal intracranial mass lesion. The ventricles are stan l in size. There is mild mucosal thickening in the paranasal sinuses. The orbits are normal. The mast oid air cells are normal. The vertebral arteries are codominant. There is no significant stenosis of basilar artery or the posterior cerebral arteries. The posterior communicating arteries are normal. T here is no significant stenosis of intracranial internal carotid arteries or anterior or middle cereb ral arteries. Anterior communicating artery is normal. There is no aneurysm. NECK CTA: There are calcified pleural plaques bilaterally, which may be seen with asbestos exposure. There is a 4 mm nodule in right thyroid lobe, likely not clinically significant. There are no patholo gically enlarged lymph nodes. There is no significant stenosis of the vertebral arteries. There is pl aque in the proximal left internal carotid artery. There is 0% stenosis of the proximal right interna l carotid artery relative to normal distal artery lumen diameter (NASCET criteria). There is 0% steno sis of the proximal left internal carotid artery relative to normal distal artery lumen diameter. The re is severe cervical spondylosis. IMPRESSION: 1. Moderate nonspecific cerebral white matter disease, which likely represents chronic small vessel i schemic disease. 2. No aneurysm or significant intracranial arterial stenosis. 3. 0% stenosis of the proximal internal carotid arteries relative to normal distal artery lumen diame ters (NASCET criteria). Reviewed, dictated and finalized at location A. IMPRESSION: 1. Moderate nonspecific cerebral white matter disease, which likely represents chronic small vessel ischemic disease. 2. No aneurysm or significant intracranial arterial stenosis. 3. 0% stenosis of the proximal internal carotid arteries relative to normal dis re artery lumen diameters (NASCET criteria).
--- NOTE | 2023-11-17 13:32 | ED.GENADULT ---
HPI - General Adult General Chief complaint: Unspecified Stated complaint: stroke like symptoms - resolved Time Seen by Provider: 11/17/23 12:55 History of Present Illness HPI narrative: Patient is a 78 year old male with history of TIAs, HLD, asthma here with slurred speech and facial droop. Patient lives with his daughter, she last saw him speaking 1-2 word sentences last night and he seemed to be his normal self. Overnight he was up and around the house and seemed to be behaving his normal self however she did not talk to him at that time so she is unsure when the speech became abnormal. Today daughter was speaking with him and noticed that he seemed to have garbled speech and was not making sense and seemed to be having difficulty finding words. They also noted that he appeared to have a right-sided facial droop and had difficulty writing with his right hand. His ex- who is at bedside went to the house and also noted these neurologic deficits and EMS was called to bring him into the emergency department. They witnessed these changes around 9:30 am and on arrival of EMS the facial droop seemed to have resolved. He continues to have word-finding difficulty and has trouble providing any history. Of note he did have a stroke in July of this year, he had similar symptoms including word finding difficulties. They were unsure if a UTI played a roll at that time, he does straight cath at home. He has been adherent to his medications including plavix which he was prescribed on last admission. Related Data Home Medications Medication Instructions Recorded Confirmed bethanechol chloride 25 mg tablet 25 mg PO BID 08/22/23 08/22/23 Allergies Allergy/AdvReac Type Severity Reaction Status Date / Time No Known Allergies Allergy Mild Verified 03/28/23 15:09 Review of Systems Review of Systems: ROS unobtainable: Yes unobtainable due to mental status PMFSH Past Medical History Medical History Asthma Brain TIA Family hx of colon cancer Hx of back injury Hx of colonic polyp Insomnia Prostate cancer Pure hypercholesterolemia, unspecified Surgical History Surgical History History of colon resection Hx of hernia repair Family History Family History Father Acute myocardial infarction Mother Carcinoma of colon, Onset Age: 83 Sibling Carcinoma of colon, Onset Age: 48 Social History Social History Smoking status: Never smoker Second hand tobacco smoke exposure: No Alcohol intake: never Substance use: never Substance use type: does not use Do You Feel Safe in your Home?: Yes Lack of Transportation: No Lack of Food: Never True Current Housing: I Have Housing Concerned About Future Housing: No Difficulty Paying Gas/Electric Bills: No Difficulty Paying for Meds: No Currently Unemployed: No Education: Trade/Vocational Certificate Difficulty w/ Childcare or Family Care: No Living arrangements: with family Occupation/Education: retired Gender identity (if verbalized by the patient): Male Sexual Orientation (if Verbalized by the Patient): Straight or Heterosexual Spiritual care concerns: No Agree to blood products: Yes Exam Narrative: GENERAL: Well-appearing, well-nourished, and in no acute distress. HEAD: Normocephalic, atraumatic. EYES: PERRLA and EOMI. ENT: Nares clear. Mucous membranes moist. NECK: Supple. CHEST: Clear to auscultation. No respiratory distress. HEART: Regular rate and rhythm. Normal peripheral pulses. ABDOMEN: Soft, nontender, nondistended. EXTREMITIES: Normal range of motion. No edema. SKIN: Warm, dry, no rash. NEURO: No facial droop, no upper or lower extremity drift. No obvious sensory deficits. No gaze palsy. Patient has significant
[2023-11-17 14:40] LABS: Basophils Percent Auto 0.5 % (0.2-1.2); Eosinophils Absolute Auto 0.1 K/mm3 (0-0.3); Eosinophils Percent Auto 1.3 % (0-4.4); Hematocrit 36.3 % (42.0-52.0); Hemoglobin 11.9 g/dL (14.0-18.0); Immature Granulocyte Absolute 0.02 K/mm3 (0.00-0.031); Immature Granulocyte Percent A 0.3 % (0-0.5); Lymphocytes Absolute Auto 1.99 K/mm3 (0.9-3.2); Mean Corpuscular HGB Conc 32.8 g/dl (32-36); Mean Corpuscular Hemoglobin 29.4 pg (26-34); Mean Corpuscular Volume 89.6 fl (80-100); Mean Platelet Volume 9.6 fl (7.4-10.4); Monocytes Absolute Auto 0.7 K/mm3 (0.1-0.6); Monocytes Percent Auto 9.7 % (2.6-8.5); Neutrophils Absolute Auto 4.8 K/mm3 (1.3-6.7); Neutrophils Percent Auto 62.2 % (45.5-73.1); Platelet Count Result 181 k/mm3 (150-375); Red Blood Count 4.05 M/mm3 (4.6-6.20); Red Cell Distribution Width 14.6 % (11.5-14.5); White Blood Count 7.7 K/mm3 (4.5-10.0)
[2023-11-17 14:54] LABS: Alanine Aminotransferase 11 U/L (6-50); Albumin Level 3.6 g/dL (3.5-5.1); Alkaline Phosphatase 70 U/L (38-126); Anion Gap 8 mmol/L (4-12); Aspartate Amino Transferase 21 U/L (17-59); Blood Urea Nitrogen 14 mg/dL (9-20); Calcium 8.3 mg/dL (8.4-10.2); Carbon Dioxide 20 mmol/L (22-30); Chloride 110 mmol/L (98-107); Estimated CRCL calculation 76 ml/min; Estimated Glomerular Filt Rate > 60; Glucose 82 mg/dL (65-110); Magnesium 1.6 mg/dL (1.6-2.3); Potassium 3.5 mmol/L (3.4-5.0); Sodium 138 mmol/L (137-145)
[2023-11-17 15:05] LABS: Troponin I < 0.012 ng/mL (0.000-0.034)
[2023-11-17 15:35] LABS: Appearance Urine Clear (Clear); Bacteria Urine 4+ /hpf; Bilirubin Urine Negative (Negative); Blood Urine Negative (Negative); Color Urine Yellow (Yellow); Glucose Urine UA Negative (Negative); Ketones Urine Trace mg/dL (Negative); Leukocyte Esterase Ur 2+ LEU/UL (Negative); Nitrate Urine Negative (Negative); Non Pathogenic Casts 0-2; Protein Urine Negative (Negative); RBC Urine 0-2 /hpf (0-2); Specific Grav Ur 1.008 (1.001-1.035); Squamous Epithelial Cell Urine None Seen /hpf (Few); Urobilinogen Urine 0.2 mg/dL (<2.0); WBC Urine 51-100 /hpf (0-3); pH Urine >=9.0 (5.0-9.0)
[2023-11-17 15:39] LABS: Add Urine Microscopic? YES
--- NOTE | 2023-11-17 18:09 | PC.NURSE ---
called [address] [place] [address] for report, they state that room 341 is still dirty and they would call when the room is clean. Credit Adjuster notified.
--- NOTE | 2023-11-17 18:50 | PC.NURSE ---
1850 called to check on bed status. Lorenza states the ETA per housekeeping is maybe 20 minutes.
--- NOTE | 2023-11-17 20:18 | ADMGEN ---
This patient, Vamsi Waite, was admitted to Medical Room 341-01. Patient/family oriented to hospital policies and general routines including ID bracelet, bed and alarms, visiting hours, pain management, procedures, bathroom and other care routines, personal items, smoking policy, room service/diet, and visiting hours. Information on how to activate the Rapid Response Team has been discussed. Patient/Family are encouraged to report perceived risks to care and to ask questions if they do not understand what they are told or what they should do.
--- NOTE | 2023-11-17 21:41 | PM.IMHP ---
H&P: HPI History of Present Illness Date/Time: 11/18/23 00:00 Chief Complaint: Dysarthria, Facial Droop Narrative: 78 y/o M presented here with dysarthria and facial droop with PMH of CVA (07/2023), TIA, HLD, asthma, insomnia, and prostate cancer. Patient presents here via EMS from home for further evaluation of dysarthria and facial droop. Patient currently lives with his daughter who noted that he was speaking less last night (1-2 word sentences), but otherwise seems like his normal self. She reports hearing him it moving throughout the house overnight but did not speak with him. This morning around 9:30 a.m. the patient's daughter noted garbled speech, confusion, word-finding difficulty, right-sided facial droop, and difficulty writing with the right hand. EMS was called, upon their arrival facial droop had resolved but he continued to experience word-finding difficulty. Arrived to the emergency department around noon today with confusion, some loss of fluency, and dysarthria. Patient had similar symptoms in July of 2023, was evaluated here at [facility]. Initial imaging did not show acute infarct, however MRI showed acute infarct of the left coronary radiata on the diffusion scanning sequence. He was started on antiplatelets and a statin. UA consistent with UTI, does have risk factor (self caths). Denies lower abdominal pain and endorsing urinary urgency. Patient reports symptoms resolved around 6 pm, no dysarthria or word finding difficulty on exam. Patient reports difficulty remembering events over the last 24 hours. Initial VS at presentation: 97.6? F, HR 47, RR 16, 124/71, and 100% on RA. ED workup showed: No leukocytosis, hemoglobin 11.9 (similar to prior), no significant electrolyte derangements, creatinine 0.8 a and GFR >60. UA suggestive of UTI. Review of Systems Review of Systems: All systems reviewed & are unremarkable except as noted in HPI and below PMFSH Past Medical History Medical History Asthma Benign prostatic hyperplasia with lower urinary tract symptoms CVA (cerebral vascular accident) Family hx of colon cancer Hx of back injury Hx of colonic polyp Insomnia Major depressive disorder, recurrent, mild Prostate cancer (~04/2021) Pure hypercholesterolemia, unspecified Transient ischemic attack Urinary retention Surgical History Surgical History History of colon resection Hx of hernia repair Family History Family History Father Acute myocardial infarction Mother Carcinoma of colon, Onset Age: 83 Sibling Carcinoma of colon, Onset Age: 48 Social History Social History Smoking status: Never smoker Second hand tobacco smoke exposure: No Alcohol intake: never Substance use: never Substance use type: does not use Do You Feel Safe in your Home?: Yes Lack of Transportation: No Lack of Food: Never True Current Housing: I Have Housing Concerned About Future Housing: No Difficulty Paying Gas/Electric Bills: No Difficulty Paying for Meds: No Currently Unemployed: No Education: High School Diploma/GED Difficulty w/ Childcare or Family Care: No Living arrangements: with family Occupation/Education: retired Gender identity (if verbalized by the patient): Male Sexual Orientation (if Verbalized by the Patient): Straight or Heterosexual Spiritual care concerns: No Agree to blood products: Yes Meds Home Medications and Allergies Home Medications Medication Instructions Recorded Confirmed Type aspirin 81 mg tablet,delayed 81 mg PO QAM #30 tabs 12/04/21 11/17/23 Rx release pantoprazole 40 mg tablet,delayed 40 mg PO BID #180 tabs 12/27/22 11/17/23 Rx release atorvastatin 80 mg tablet 80 mg PO HS #90 tabs 08/15/2311/16
[2023-11-17] MEDS: LACTATED RINGERS 1,000 ML 100 ML IV CONT (22:35)
[2023-11-18] VITALS (9 sets, daily range): BP systolic 95–113; BP diastolic 55–71; PULSE 49–64; RESP 17–20; TEMP 36.3–36.8; O2SAT 98–99
--- NOTE | 2023-11-18 | ECHO_ITS ---
Patient Info Name: Vamsi Waite Age: 78 years : 1945 Gender: Male Ht: 72 in Wt: 179 lbs BSA: 2.04 m2 HR: 53 bpm BP: 113 / 71 mmHg Heart Rhythm: Sinus Rhythm Technical Quality: Fair Exam Date: 11/18/2023 2:24 PM Exam Location: Echo Lab Patient Status: Inpatient Admit Date: 11/17/2023 Staff Ordering Physician: Arin Shook MD Security Police: Brittany Otero RDCS Attending Provider: Fadi Tellez MD Exam Type: CA echo doppler w bubble study Study Info Indications - hx of strokes Complete two-dimensional, color flow and Doppler transthoracic echocardiogram is performed with agitated saline. Contrast/Agitated Saline Contrast/Ag. Saline: Agitated Saline Amount: 20.00 ml Existing IV Access: Yes IV Access Condition: patent with no signs of infiltration Summary 1. Normal left ventricular size with vigorous systolic function and grade 1 diastolic noncompliance. 2. Mildly enlarged left atrium. 3. Mildly sclerotic aortic valve which is nonstenotic. 4. Saline contrast injection demonstrates no evidence of shunt. 5. Compared with echocardiogram from July of this year and November of 2021 the findings are unchanged. Left Ventricle Left ventricular chamber dimension is normal. Left ventricular systolic function is normal, estimated at 65-70%. The left ventricular diastolic function is grade I diastolic dysfunction. Right Ventricle Right ventricular chamber dimension is normal. Left Atria Left atrial chamber dimension is mildly enlarged. Right Atria Right atrial chamber dimension is normal. Atrial Septum Intact interatrial septum visualized by agitated saline imaging. Aortic Valve The aortic valve is trileaflet. There is mild aortic valve sclerosis. Pulmonic Valve The pulmonic valve is normal. Mitral Valve The mitral valve has normal leaflets. Tricuspid Valve The tricuspid valve leaflets are normal. Pericardium/Pleural The pericardium appears normal. Aorta The aortic root size at the sinus of Valsalva is normal. Left Ventricular Outflow Tract Name Value Normal LVOT 2D LVOT Diameter 2.0 cm LVOT Doppler LVOT Peak Gradient 4 mmHg LVOT Mean Gradient 2 mmHg LVOT VTI 18 cm LVOT VTI/AV VTI Ratio 0.8 LVOT Stroke Volume 56 ml LVOT CO 3.2 l/min LVOT CI 1.6 l/min/m2 Pulmonic Valve Name Value Normal RVOT Doppler RVOT Peak Gradient 1 mmHg PV Doppler PV Peak Gradient 4 mmHg Mitral Valve Name Value Normal
[2023-11-18 05:14] LABS: Basophils Percent Auto 0.7 % (0.2-1.2); Eosinophils Absolute Auto 0.1 K/mm3 (0-0.3); Eosinophils Percent Auto 1.5 % (0-4.4); Hematocrit 33.6 % (42.0-52.0); Hemoglobin 11.1 g/dL (14.0-18.0); Immature Granulocyte Absolute 0.01 K/mm3 (0.00-0.031); Immature Granulocyte Percent A 0.2 % (0-0.5); Lymphocytes Absolute Auto 1.29 K/mm3 (0.9-3.2); Mean Corpuscular Hemoglobin 29.9 pg (26-34); Mean Corpuscular Volume 90.6 fl (80-100); Mean Platelet Volume 9.7 fl (7.4-10.4); Monocytes Absolute Auto 0.5 K/mm3 (0.1-0.6); Monocytes Percent Auto 10.7 % (2.6-8.5); Neutrophils Absolute Auto 2.7 K/mm3 (1.3-6.7); Neutrophils Percent Auto 58.9 % (45.5-73.1); Platelet Count Result 177 k/mm3 (150-375); Red Blood Count 3.71 M/mm3 (4.6-6.20); Red Cell Distribution Width 14.6 % (11.5-14.5); White Blood Count 4.6 K/mm3 (4.5-10.0)
[2023-11-18 05:25] LABS: Alanine Aminotransferase 9 U/L (6-50); Albumin Level 3.3 g/dL (3.5-5.1); Alkaline Phosphatase 65 U/L (38-126); Anion Gap 8 mmol/L (4-12); Aspartate Amino Transferase 20 U/L (17-59); Bilirubin,Total 0.8 mg/dL (0.2-1.3); Blood Urea Nitrogen 11 mg/dL (9-20); Calcium 8.1 mg/dL (8.4-10.2); Carbon Dioxide 20 mmol/L (22-30); Chloride 110 mmol/L (98-107); Estimated CRCL calculation 74 ml/min; Estimated Glomerular Filt Rate > 60; Glucose 86 mg/dL (65-110); Potassium 3.7 mmol/L (3.4-5.0); Sodium 138 mmol/L (137-145)
[2023-11-18] MEDS: ESCITALOPRAM OXALATE 10 MG TABLET 20 MG PO (08:53)
[2023-11-18] MEDS: CLOPIDOGREL BISULFATE 75 MG TABLET PO (08:53)
[2023-11-18] MEDS: ASPIRIN 81 MG ENTERIC TABLET PO (08:53)
[2023-11-18] MEDS: PANTOPRAZOLE 40 MG TABLET PO ×2 (08:53→20:48)
[2023-11-18] MEDS: TAMSULOSIN HCL 0.4 MG CAPSULE PO ×2 (08:53→20:48)
--- NOTE | 2023-11-18 09:18 | PCSTNOTE ---
Please refer to the Bedside Swallow Evaluation in the EMR. Please note, silent aspiration cannot be ruled out at bedside.
--- NOTE | 2023-11-18 10:27 | WPDNEURCNPN ---
Assessment and Plan Assessment and plan (1) Acute UTI: Code(s): N39.0 - Urinary tract infection, site not specified Status: Acute (2) Aphasia: Code(s): R47.01 - Aphasia Status: Acute (3) History of stroke: Code(s): Z86.73 - Personal history of transient ischemic attack (TIA), and cerebral infarction without residual deficits Status: Acute Plan Vamsi Waite is a 78 year old male with a history of prior stroke, HLD, asthma, prostate cancer presenting for evaluation of word finding difficulty and R facial droop. He was found to have a UTI. Symptoms could be related to recrudesnece of prior stroke symptoms in setting of UTI vs new acute stroke. - MRI Brain - Echocardiogram WITH bubble study. If there is acute stroke and bubble study is negative, will likely need additional cardiac work-up such as loop implant - Check LDL and HgbA1c - Continue Aspirin 81mg daily - Continue Lipitor 80mg daily Consult date: 11/18/23 Reason for consult: Stroke like symptoms HPI: Vamsi Waite is a 78 year old male with a history of prior stroke, HLD, asthma, prostate cancer presenting for evaluation of worsening stroke symptoms. Patient's daughter reports that the night prior to admission, he was speaking less (1-2 word sentences), but otherwise seemd like his usual self. However, the following morning on 11/17 around 0930, daughter noted that patient had garbled speech, word finding difficulty, R sided facial droop, and difficulty writing with the right hand. EMS was called. On their arrival, facial droop had resolved but he continued to have word finding difficulty. He presented to [place] ED shortly afterwards and continued to have aphasia. CT head showed no acute changes. CTA brain/carotid was unrevealing as well. EKG showed sinus rhythm. BP ranged in the 130s systolic. He was outside the window for intervention as his LKW was the day prior to presentation. UA was suggestive of UA. Of note, patient had similar symptoms when he had a stroke in July 2023. MRI brain at that time showed small acute infarct in the L frontoparietal espinoza radiata. Echo showed moderate L atrial enlargement but no shunt evaluation was done. He was discharged on DAPT and Lipitor 80mg daily. He had a 30 day event monitor after discharge that was unrevealing as well. Review of Systems Review of Systems: All systems reviewed & are unremarkable except as noted in HPI and below PMFSH Past Medical History Medical History Asthma Benign prostatic hyperplasia with lower urinary tract symptoms CVA (cerebral vascular accident) Family hx of colon cancer Hx of back injury Hx of colonic polyp Insomnia Major depressive disorder, recurrent, mild Prostate cancer (~04/2021) Pure hypercholesterolemia, unspecified Transient ischemic attack Urinary retention Surgical History Surgical History History of colon resection Hx of hernia repair Family History Family History Father Acute myocardial infarction Mother Carcinoma of colon, Onset Age: 83 Sibling Carcinoma of colon, Onset Age: 48 Social History Social History Smoking status: Never smoker Second hand tobacco smoke exposure: No Alcohol intake: never Substance use: never Substance use type: does not use Do You Feel Safe in your Home?: Yes Lack of Transportation: No Lack of Food: Never True Current Housing: I Have Housing Concerned About Future Housing: No Difficulty Paying Gas/Electric Bills: No Difficulty Paying for Meds: No Currently Unemployed: No Education: High School Diploma/GED Difficulty w/ Childcare or Family Care: No Living arrangements: with family Occupation/Education: retired Gender identity (if verbalized by the patient): Male S
--- NOTE | 2023-11-18 10:42 | PC.NURSE ---
Patient off of unit to MRI
[2023-11-18 14:52] LABS: Hemoglobin A1C 5.4 % (<5.7)
[2023-11-18 15:13] LABS: LDL Cholesterol Direct 73 mg/dL
--- NOTE | 2023-11-18 18:09 | PM.IMPN ---
Progress Note: A&P Assessment and Plan (1) Dysarthria: Code(s): R47.1 - Dysarthria and anarthria Status: Acute Assessment and Plan: - CXR: No active disease or significant change since 08/21/[address] is detected. - CT head: No acute intracranial findings. - CTA head/neck 1. Moderate nonspecific cerebral white matter disease, which likely represents chronic small vessel ischemic disease. 2. No aneurysm or significant intracranial arterial stenosis. 3. 0% stenosis of the proximal internal carotid arteries relative to normal distal artery lumen diameters (NASCET criteria). - Neurology consulted - MRI Brain: 1. Stable moderate nonspecific cerebral white matter disease and pontine disease, which likely represents chronic small vessel ischemic disease. - Echocardiogram WITH bubble study. If there is acute stroke and bubble study is negative, will likely need additional cardiac work-up such as loop implant - Check LDL and HgbA1c - Continue Aspirin 81mg daily - Continue Lipitor 80mg daily PT/OT Eval and Rx (2) Acute UTI: Code(s): N39.0 - Urinary tract infection, site not specified Status: Acute Assessment and Plan: - UA: PH greater than 9, trace ketones, 2+ leuks, 51-100 WBC, no epithelial cells, 4+ bacteria. - previous micro reviewed, previously grew Klebsiella oxytoca and no resistances - started on Ceftriaxone on 11/16 (3) Urinary retention: Code(s): R33.9 - Retention of urine, unspecified Status: Acute Assessment and Plan: - straight caths QID, continued - on bethanechol for adynamic bladder and oxybutynin for overactive bladder, held until further clarification can be made - continue Flomax Plan Patient here with recurrent dysarthria, word-finding difficulty, and facial droop. Facial droop is since resolved but continues to have dysarthria and word-finding difficulty. No acute infarct or LVO on imaging. Neurology consulted. MRI ordered. Speech eval ordered and NPO. Symptoms have resolved. CVA verses recrudescence of prior stroke symptoms due to UTI. Urine culture pending and started on ceftriaxone on 11/16. Diet: NPO until speech eval GI Prophylaxis: Pantoprazole p.o. b.i.d. DVT Prophylaxis: SCDs Lines: Peripheral Code Status: Full code Time Spent With Patient Time with patient: 25 - 35 minutes Subjective Date/time seen: 11/18/23 18:09 Interval history: 11/18/23: Seen and examined; being managed for UTI and TIA Review of Systems Review of Systems: All systems reviewed & are unremarkable except as noted in HPI and below Exam Narrative: exam fine, back to [facility]. A/Ox self, blair, year and able to recall situational history excludinglast 24 hours. Const: General: comfortable and no acute distress Other: , male, elderly, nontoxic appearance Eyes: General: appearance normal, both eyes and all related structures Sclera: sclerae normal Pupils: Equal, round and reactive pupils present EOM: EOMs intact bilaterally Resp: Effort & Inspection: normal respiratory effort Auscultation: clear to auscultation bilaterally Cardio: Rate: regular rate Rhythm: regular rhythm Other: S1-S2 present without murmur, rub, ectopy Skin: General skin exam: normal color and no rashes or lesions noted Wounds: no wounds Neuro: Cranial nerves: Yes Equal, round and reactive pupils present Speech: normal speech Motor exam (neuro): 5/5 motor strength present throughout Sensory Exam: normal sensation Other: A/Ox self, place, year and able to recall situational history excluding last 24 hours. NIHSS: 0 Extrem: General: normal to inspection Psych: Mental Status: mental status grossly normal Affect: normal affect Other: Fair insight and judgment, pleasant. Objective Data Vital Signs Vital Signs: Vital Signs - 24 hr 11/17/23 18:17 11/17/23 18:32 11/17/23 18:46 Temperature Pulse Rate 52 L 56 L 51 L R
[2023-11-18] MEDS: ATORVASTATIN 40 MG TABLET 80 MG PO (20:48)
[2023-11-19] VITALS (9 sets, daily range): BP systolic 104–136; BP diastolic 61–67; PULSE 43–63; RESP 14–20; TEMP 36.4–36.8; O2SAT 97–100
[2023-11-19] MEDS: ESCITALOPRAM OXALATE 10 MG TABLET 20 MG PO (08:25)
[2023-11-19] MEDS: CLOPIDOGREL BISULFATE 75 MG TABLET PO (08:25)
[2023-11-19] MEDS: PANTOPRAZOLE 40 MG TABLET PO ×2 (08:25→20:16)
[2023-11-19] MEDS: ASPIRIN 81 MG ENTERIC TABLET PO (08:25)
[2023-11-19] MEDS: TAMSULOSIN HCL 0.4 MG CAPSULE PO ×2 (08:25→20:16)
--- NOTE | 2023-11-19 15:44 | PM.IMPN ---
Progress Note: A&P Assessment and Plan (1) Dysarthria: Code(s): R47.1 - Dysarthria and anarthria Status: Acute Assessment and Plan: - CXR: No active disease or significant change since 08/21/2023 is detected. - CT head: No acute intracranial findings. - CTA head/neck 1. Moderate nonspecific cerebral white matter disease, which likely represents chronic small vessel ischemic disease. 2. No aneurysm or significant intracranial arterial stenosis. 3. 0% stenosis of the proximal internal carotid arteries relative to normal distal artery lumen diameters (NASCET criteria). - Neurology consulted : Recommended echocardiogram with bubble study. May need addition Cardiac workup with loop implant. Continue with aspirin and Lipitor daily. - MRI Brain: 1. Stable moderate nonspecific cerebral white matter disease and pontine disease, which likely represents chronic small vessel ischemic disease. - Echocardiogram WITH bubble study. If there is acute stroke and bubble study is negative, will likely need additional cardiac work-up such as loop implant - Check LDL and HgbA1c - Continue Aspirin 81mg daily - Continue Lipitor 80mg daily - 2D echocardiogram: Summary ? 1. Normal left ventricular size with vigorous systolic function and grade 1 diastolic noncompliance. ? 2. Mildly enlarged left atrium. ? 3. Mildly sclerotic aortic valve which is nonstenotic. ? 4. Saline contrast injection demonstrates no evidence of shunt. ? 5. Compared with echocardiogram from July of this year and November of 2021 the findings are unchanged. PT/OT Eval and Rx (2) Acute UTI: Code(s): N39.0 - Urinary tract infection, site not specified Status: Acute Assessment and Plan: - UA: PH greater than 9, trace ketones, 2+ leuks, 51-100 WBC, no epithelial cells, 4+ bacteria. - previous micro reviewed, previously grew Klebsiella oxytoca and no resistances - current urine culture confirmed Klebsiella oxytoca with good sensitivity to major antibiotics - started on Ceftriaxone on 11/16 (3) Urinary retention: Code(s): R33.9 - Retention of urine, unspecified Status: Acute Assessment and Plan: - straight caths QID, continued - on bethanechol for adynamic bladder and oxybutynin for overactive bladder, held until further clarification can be made - continue Flomax - patient uses disposable urine catheters for self catheterization. At times he gets concerned that he might run out of those catheters and re-uses those catheters. Strictly patient and his partner not to re-use his urine catheters. Plan Patient here with recurrent dysarthria, word-finding difficulty, and facial droop. Facial droop is since resolved but continues to have dysarthria and word-finding difficulty. No acute infarct or LVO on imaging. Neurology consulted. MRI ordered. Speech eval ordered and NPO. Symptoms have resolved. CVA verses recrudescence of prior stroke symptoms due to UTI. Urine culture pending and started on ceftriaxone on 11/16. Diet: NPO until speech eval GI Prophylaxis: Pantoprazole p.o. b.i.d. DVT Prophylaxis: SCDs Lines: Peripheral Code Status: Full code ? Patient seen and examined at bedside during my morning rounds ? Collaborated with patient's nurse at the bedside in detail and addressed all concerns ? Labs, electrolytes, radiology, investigations and test results reviewed ? Consult/Nursing/Ancilliary notes on the chart reviewed and appreciated ? Spoke with patient/family at the bedside and answered all the questions that they had Repeat labs in a.m. Electrolyte replacement as per protocol. Patient will be monitored very closely on the floor. Further recommendations as per the hospital course. Time Spent With Patient Time with patient: 15 - 25 minutes Subjective Date/time seen: 11/19/23 15:44 Interval history: 11/18/23: Seen and examined; being managed for UTI and TIA 11/19/2023: Patient seen and evaluated b
--- NOTE | 2023-11-19 16:15 | PC.NURSE ---
RN tried to call hospitalist Leodan. No answer at this time.
--- NOTE | 2023-11-19 18:35 | WPDNEUROPN ---
Progress Note: A&P Assessment and Plan (1) CVA (cerebral vascular accident): Code(s): I63.9 - Cerebral infarction, unspecified Status: Acute (2) Acute UTI: Code(s): N39.0 - Urinary tract infection, site not specified Status: Acute (3) Aphasia: Code(s): R47.01 - Aphasia Status: Acute Plan The patient could be having recurrent transient ischemic attack due to a cerebral thrombosis type process. Possibility of some kind a focal seizure or that did not appear to be any confusional state and hence a focal seizure with still be a consideration in the differential diagnosis. The family seems to think that he had urinary tract infection. He does have some growth in the urine and is being treated for the same. His at this time I would suggest to continue with the antiplatelets and statins and treat his UTI. Recent CT scan and MRI scan of the brain did not show any acute abnormality. Previously noted I infarct in the left fronto a parietal area was still noted. No new infarct were seen. The patient is on atorvastatin 80 mg a day in addition to aspirin 81 mg a day and Plavix 75 mg a day. I would suggest to continue the same. Subjective Date/time seen: 11/19/23 18:35 Interval history: The patient has history of for 2 spells on the day of admission where he could not talk but he was able to understand. The episode lasted for 45 minutes to an hour according to his daughter and ex- were present the time of evaluaion. He had ilar spell in July this year when he was found to have a left CVA I had seen him at the time. He also has history of similar spell in 2021. He did not have any passing out spell for confusional state but he could not talk or find the words that he wants to say for the duration in which he had the symptoms. Review of Systems Review of Systems: All systems reviewed & are unremarkable except as noted in HPI and below Exam Narrative: Fully conscious alert oriented to self time place and person speech is fluent and articulate. No facial asymmetry. Facial sensation intact. Cranial certainly testing intact. Motor system normal power and tone in both upper and lower limbs deep tendon reflexes did not show any asymmetry. Plantars were downgoing. Sensory is intact to pin temperature vibration. No ataxia nystagmus or intention tremors were noted. Objective Data Vital Signs Vital Signs: Vital Signs - 24 hr 11/18/23 20:12 11/18/23 20:00 11/18/23 20:00 Temperature 36.3 C L Pulse Rate 60 49 L 60 Respiratory Rate 18 18 Blood Pressure 101/69 Pulse Oximetry 98 98 Oxygen Delivery Room Air 11/19/23 00:00 11/19/23 04:00 11/19/23 04:22 Temperature 36.4 C Pulse Rate 45 L 43 L 50 L Respiratory Rate 14 Blood Pressure 136/66 Pulse Oximetry 98 Oxygen Delivery 11/19/23 08:25 11/19/23 08:00 11/19/23 12:00 Temperature Pulse Rate 45 L 55 L Respiratory Rate Blood Pressure Pulse Oximetry Oxygen Delivery Room Air 11/19/23 14:00 11/19/23 16:00 Temperature 36.8 C Pulse Rate 63 47 L Respiratory Rate 18 Blood Pressure 104/67 Pulse Oximetry 97 Oxygen Delivery Intake/Output Intake/Output: Intake & Output 11/16/23 11/17/23 11/18/23 11/19/23 23:59 23:59 23:59 23:59 Intake Total 50 1900 1320 Output Total 100 1450 900 Balance -50 450 420 Meds/Results Medications: Active Medications Generic Name Dose Route Start Last Admin Trade Name Freq PRN Reason Stop Dose Admin Aspirin 81 mg 11/18/23 09:00 11/19/23 08:25 Aspirin 81 Mg Enteric Tablet PO 81 mg QAM [facility] Administration Atorvastatin Calcium 80 mg 11/17/23 21:00 11/18/23 20:48 Atorvastatin 40 Mg Tablet PO 80 mg HS [facility] Administration Bethanechol Chloride 25 mg 11/18/23 09:00 Bethanechol Chloride 25 Mg Tablet PO BID [facility] Clopidogrel Bisulfate 75 mg 11/18/23 09:00 11/19/23 08:25 Clopidogrel Bisulfate 75 Mg Tablet
[2023-11-19] MEDS: ATORVASTATIN 40 MG TABLET 80 MG PO (20:16)
[2023-11-20] VITALS: PULSE 48
[2023-11-20 04:00] VITALS: PULSE 50
[2023-11-20 05:53] VITALS: BP 121/67; PULSE 50; RESP 20; TEMP 36.8; O2SAT 100
[2023-11-20 08:00] VITALS: PULSE 46
[2023-11-20] MEDS: CLOPIDOGREL BISULFATE 75 MG TABLET PO (08:29)
[2023-11-20] MEDS: ESCITALOPRAM OXALATE 10 MG TABLET 20 MG PO (08:29)
[2023-11-20] MEDS: PANTOPRAZOLE 40 MG TABLET PO (08:30)
[2023-11-20] MEDS: TAMSULOSIN HCL 0.4 MG CAPSULE PO (08:30)
[2023-11-20] MEDS: ASPIRIN 81 MG ENTERIC TABLET PO (08:30)
--- NOTE | 2023-11-20 11:40 | PM.CNCAR ---
Assessment and Plan Assessment and plan (1) CVA (cerebral vascular accident): Code(s): I63.9 - Cerebral infarction, unspecified Status: Acute (2) History of stroke: Code(s): Z86.73 - Personal history of transient ischemic attack (TIA), and cerebral infarction without residual deficits Status: Acute (3) Aphasia: Code(s): R47.01 - Aphasia Status: Acute Plan This is a 78-year-old man who had a ischemic stroke in July of this year he now presents with transient cerebral ischemia despite being on dual anti-platelet therapy. There is no obvious cardioembolic source identified by echo and he has no history of atrial fibrillation. A 30 day event monitor which was done after the CVA in July demonstrated no AF. Paroxysmal atrial fib however remains common and in the differential diagnosis. I would agree with the neurology store consultant that implantation of a loop recorder is appropriate. Discussed this with the patient in detail he is agreeable. Since it is the weekend he can be discharged and I will be contacting him as an outpatient to arrange implant of this device Kaiser Winter MD [facility] History of Present Illness History of Present Illness Consult date/time: 11/20/23 11:40 Reason For Visit: Stroke-like Symptoms, UTI Narrative: This is a 78-year-old man I am seeing at the request of the hospitalist and the neurology consultants to consider loop recorder implantation. The patient is unknown to me prior to this consultation. This very pleasant gentleman experienced a CVA in July of this year after which he was started on anti-platelet therapy including aspirin and clopidogrel. His cardiac workup was unremarkable at that time including echocardiogram as well as a 30 day event monitor that was done after that discharge. There is is no evidence of or history of atrial fibrillation that has ever been documented. His primary care physician has not identified any cardiac problems at this time. He came back into the hospital again with transient symptoms of expressive aphasia. He states that he was unable to find the correct word to say and that this symptom persisted for about 1 hour or so. It resolved spontaneously his neurological evaluation and imaging have been unrevealing. He is being seen in consultation request to consider loop implantation. Of course he is on telemetry since admission the and nothing but sinus rhythm has been identified. He denies any symptoms of exertional dyspnea chest pain palpitations orthopnea PND or edema. Another echocardiogram was done during this admission which was unremarkable and also included a negative saline contrast injection. Review of Systems Constitutional: Constitutional: Reports no additional constitutional complaints Eyes: Eyes: Reports no additional eye complaints ENT: Reports system reviewed and no additional complaints, except as documented Cardiovascular: Cardiovascular: Reports no additional cardiovascular complaints Respiratory: Respiratory: Reports no additional respiratory complaints Gastrointestinal: Gastrointestinal: Reports no additional gastrointestinal complaints Musculoskeletal: Musculoskeletal: Reports no additional musculoskeletal complaints Integumentary/Breasts: Skin/Breast: Reports system reviewed and no additional complaints, except as docu Neurologic: Reports as per HPI Endocrine: Endocrine: Reports no additional endocrine complaints Hematologic/Lymphatic: Hematologic/Lymphatic: Reports no additional hematologic/lymphatic complaints Allergic/Immunologic: Allergic/Immunologic: Reports no additional allergic/immunologic complaints PMFSH Past Medical History Medical History Asthma Benign prostatic hyperplasia with lower urinary tract symptoms CVA (cerebral vascular accident) Family hx of colon cancer Hx of back injury Hx of colonic
[2023-11-20 12:00] VITALS: PULSE 52
--- NOTE | 2023-11-20 13:58 | PM.DS ---
DS: Admitting Diagnosis Discharge Date 11/20/2023: Admitting Diagnosis (1) Dysarthria: ?Code(s): R47.1 - Dysarthria and anarthria ?Status:?Acute ?Assessment and Plan: New deficits of dysarthria/word finding difficult starting on 11/16 at 9:30 a.m. No acute infarct or LVO on CT/CTA of brain.? Symptoms resolved around 6:00 p.m. on 11/16. - admission for observation and telemetry - not candidate for thrombolytics or thrombectomy: no LVO on imaging and concern for recrudescence of prior CVA symptomatology due to concurrent UTI - CXR: No active disease or significant change since 08/21/2023 is detected. - CT head: No acute intracranial findings.? - CTA head/neck 1. Moderate nonspecific cerebral white matter disease, which likely represents chronic small vessel ischemic disease. 2. No aneurysm or significant intracranial arterial stenosis. 3. 0% stenosis of the proximal internal carotid arteries relative to normal distal artery lumen diameters (NASCET criteria). - neurology consulted - [facility] - brain MRI w/wo ordered - previous echo (07/2023) EF 60-65% grade 1 diastolic dysfunction see read out for details - neuro checks Q4 - NPO and speech/swallow eval - PT/OT to eval and jacqueline - monitor daily labs - lipid panel WNL and A1C 5.6% on 07/2023 - up ad yamila or fall precautions - continue Atorvastatin 40 mg PO, Plavix 75 mg PO, ASA 81 mg - DDx: new CVA vs recrudescence of prior stroke symptoms due to UTI (2) Acute UTI: ?Code(s): N39.0 - Urinary tract infection, site not specified ?Status:?Acute ?Assessment and Plan: - UA:? PH greater than 9, trace ketones, 2+ leuks, 51-100 WBC, no epithelial cells, 4+ bacteria. - UC pending, obtained on 11/16 - previous micro reviewed, previously grew Klebsiella oxytoca and no resistances - started on Ceftriaxone on 11/16 - 1L of LR at 100 mL/hr (3) Urinary retention: ?Code(s): R33.9 - Retention of urine, unspecified ?Status:?Acute ?Assessment and Plan: - straight caths QID, continued - on bethanechol for adynamic bladder and oxybutynin for overactive bladder, held until further clarification can be made - continue Flomax DS: Discharge Diagnosis Discharge Diagnosis (1) History of stroke: Code(s): Z86.73 - Personal history of transient ischemic attack (TIA), and cerebral infarction without residual deficits Status: Acute (2) Urinary retention: Code(s): R33.9 - Retention of urine, unspecified Status: Acute (3) CVA (cerebral vascular accident): Code(s): I63.9 - Cerebral infarction, unspecified Status: Acute (4) Acute UTI: Code(s): N39.0 - Urinary tract infection, site not specified Status: Acute (5) Visual hallucinations: Code(s): R44.1 - Visual hallucinations Status: Acute (6) Pure hypercholesterolemia, unspecified: Code(s): E78.00 - Pure hypercholesterolemia, unspecified Status: Acute (7) Weak urine stream: Code(s): R39.12 - Poor urinary stream Status: Acute DS: Summary Hospital Course Reason for hospitalization: Dysarthria, Facial Droop, stroke-like symptoms Hospital Course: H&P: HPI History of Present Illness Date/Time: 11/18/23 00:00 Chief Complaint: Dysarthria, Facial Droop Narrative: 78 y/o M presented here with dysarthria and facial droop with PMH of CVA (07/2023), TIA, HLD, asthma, insomnia, and prostate cancer. Patient presents here via EMS from home for further evaluation of dysarthria and facial droop.? Patient currently lives with his daughter who noted that he was speaking less last night (1-2 word sentences), but otherwise seems like his normal self.? She reports hearing him it moving throughout the house overnight but did not speak with him.? This morning around 9:30 a.m. the patient's daughter noted garbled speech, confusion, word-finding difficulty, right-sided facial droop, and difficulty writing with the right hand.? EMS was call
== END 2023-11-20 15:30 | disposition home or self-care (01) | DRG 699 ==
LOC: ANHED 13:43 → ANH3MED 17:55
PROVIDERS: Student in an Organized Health Care Education/Training Program; Admitting Provider Internal Medicine; Emergency Provider Student in an Organized Health Care Education/Training Program; PCP Family Medicine Adolescent Medicine; Visit Provider Family Medicine
DX: T83.518A Infection and inflammatory reaction due to other urinary catheter, initial encounter (principal); F33.9 Major depressive disorder, recurrent, unspecified; G45.9 Transient cerebral ischemic attack, unspecified; N39.0 Urinary tract infection, site not specified; R47.1 Dysarthria and anarthria; C61 Malignant neoplasm of prostate; E78.5 Hyperlipidemia, unspecified; E78.00 Pure hypercholesterolemia, unspecified; N40.1 Benign prostatic hyperplasia with lower urinary tract symptoms; R33.8 Other retention of urine; R29.810 Facial weakness; B96.1 Klebsiella pneumoniae [K. pneumoniae] as the cause of diseases classified elsewhere; R29.701 NIHSS score 1; Z86.73 Personal history of transient ischemic attack (TIA), and cerebral infarction without residual deficits; Z79.02 Long term (current) use of antithrombotics/antiplatelets; Z80.0 Family history of malignant neoplasm of digestive organs; Z86.010 Personal history of colon polyps
CPT/HCPCS: 36415; 70450; 70496; 70498; 70553; 71046; 80053; 81001; 83036; 83721; 83735; 84484; 85025; 87077; 87086; 87088; 87186; 92610; 93306; 96365; 96375; 99285; A9270; A9577; J0696; J7120; Q9967

== ENCOUNTER 2023-12-23 01:27 | Day surgery (SDC) | payer MEDICARE, SELFPAY ==
[2023-12-23 08:10] VITALS: BP 122/72; PULSE 57; RESP 16; TEMP 36.2; O2SAT 100; BMI 31.4
[2023-12-23 09:22] VITALS: BP 121/73; PULSE 53; RESP 16; O2SAT 99
[2023-12-23 09:45] VITALS: BP 125/80; PULSE 49; RESP 16; O2SAT 100
--- NOTE | 2023-12-23 09:52 | WPDCARDPROC ---
Cardiac Cath Procedure Note Date of procedure:: 12/23/23 Performing physician:: Kaiser Winter MD Indication:: Cryptogenic stroke Brief clinical history:: This is a 78-year-old man who is admitted today as an outpatient for implantation of a loop recorder for evaluation of cryptogenic stroke Procedure Procedure performed:: Implantation of [employer] bio monitor 4 loop recorder Sedation/Medication given:: No sedation Access site:: Left anterior chest wall Estimated blood loss:: Minimal Procedure note:: The patient was brought to the cardiac catheterization lab where he was in the supine position in the postabsorptive state. I examined the left anterior thorax and made a vidal in the 4th intercostal space in the midclavicular line. This area was then prepped and draped in a sterile fashion. Patient received 20 cc of 1% lidocaine infiltrated in this area and inferior to this for implantation of his loop recorder. Using the bio monitor implant kit I then made a puncture wound at the previously made vidal in the skin. Using the insertion tool the bio monitor was inserted inferior to the puncture in an uneventful fashion. Procedure was well tolerated and uncomplicated. Findings:: Patient received a bio monitor4 loop recorder model [id number]. Serial number [id number]. Conclusion:: Successful uncomplicated implantation of [employer] that Give bio monitor for loop recorder for evaluation of cryptogenic stroke Kaiser Siddiqui MD [facility]
[2023-12-23 10:03] VITALS: BP 124/79; PULSE 50; RESP 17; O2SAT 100
[2023-12-23 10:30] VITALS: BP 118/84; PULSE 48; RESP 18; O2SAT 100
== END 2023-12-23 10:58 | disposition home or self-care (01) ==
PROVIDERS: PCP Family Medicine Adolescent Medicine; Visit Provider Specialist
PROC: (CPT 33285; principal; 2023-12-23 09:00)
DX: I63.9 Cerebral infarction, unspecified (principal); R47.01 Aphasia; E78.00 Pure hypercholesterolemia, unspecified; J45.909 Unspecified asthma, uncomplicated; N40.1 Benign prostatic hyperplasia with lower urinary tract symptoms; G47.00 Insomnia, unspecified; R33.9 Retention of urine, unspecified; F33.8 Other recurrent depressive disorders; Z98.890 Other specified postprocedural states; Z90.49 Acquired absence of other specified parts of digestive tract; Z86.010 Personal history of colon polyps; Z85.46 Personal history of malignant neoplasm of prostate; Z86.73 Personal history of transient ischemic attack (TIA), and cerebral infarction without residual deficits; Z80.0 Family history of malignant neoplasm of digestive organs; Z82.49 Family history of ischemic heart disease and other diseases of the circulatory system; Z79.82 Long term (current) use of aspirin; Z79.02 Long term (current) use of antithrombotics/antiplatelets
CPT/HCPCS: 33285; C1764

== ENCOUNTER 2024-08-17 18:19 | Emergency (ER) | payer MEDICARE, SELFPAY ==
--- NOTE | ~2024-08-17 | XR_ITS ---
EXAMINATION: XR wrist RT min 3V DATE: 08/17/2024 19:02 INDICATION: Right wrist pain and swelling. TECHNIQUE: 4 views of right wrist were obtained. COMPARISON: None. FINDINGS: Alignment is normal. No fracture. There is mild osteoarthritis of triscaphe joint and first carpometacarpal joint. IMPRESSION: 1. Mild polyarticular osteoarthritis. Reviewed, dictated and finalized at location A. PREPARER
[2024-08-17 18:30] VITALS: BP 121/84; PULSE 53; RESP 16; TEMP 36.6; O2SAT 100
--- NOTE | 2024-08-17 19:29 | ED_ITS ---
HPI - General Adult General Chief complaint: Ear Stated complaint: Injured Right Wrist/Ear Pain Source: patient and family Mode of arrival: ambulatory Limitations: no limitations History of Present Illness HPI narrative: PATIENT PRESENTS FOR EVALUATION OF RIGHT WRIST PAIN SINCE YESTERDAY. HE INDICATES HE TRIPPED IN A HOLE YESTERDAY. HE FELL AND INJURED HIS RIGHT WRIST IN THE PROCESS. HE DID NOT HIT HIS HEAD. NO LOSS OF CONSCIOUSNESS. HE IS NOT ON BLOOD THINNERS. HE REPORTS 8/10 PAIN IN THE RIGHT WRIST. HE IS RIGHT-HAND DOMINANT. HE HAS ASSOCIATED BRUISING. MOVEMENT MAKES HIS SYMPTOMS WORSE. HE HAS TRIED TYLENOL FOR HIS SYMPTOMS. HE ALSO REPORTS NASAL CONGESTION FOR THE LAST WEEK WHICH HAS IMPROVED. HE CONTINUES TO HAVE A RIGHT SIDED EARACHE AND A SORE THROAT. DENIES FEVER, CHILLS, NAUSEA, VOMITING, DIARRHEA, COUGH OR SOB. HE LIVES WITH HIS DAUGHTER WHO IS HERE WITH HIM TODAY. Related Data Home Medications ?Medication ?Instructions ?Recorded ?Confirmed ?Last Taken ?Type bethanechol chloride 25 mg tablet 25 mg PO BID 08/22/23 08/17/24 12/23/23 08:00 History Allergies Allergy/AdvReac Type Severity Reaction Status Date / Time No Known Allergies Allergy Mild Verified 08/17/24 18:25 Review of Systems Review of Systems: CONSTITUTIONAL: DENIES FEVER, CHILLS, OR SWEATS. EYES: DENIES VISUAL CHANGES, REDNESS, OR DISCHARGE. ENT: REPORTS RECENT NASAL CONGESTION, NOW RESOLVED. REPORTS SORE THROAT AND RIGHT-SIDED OTALGIA. DENIES RHINORRHEA CARDIOVASCULAR: DENIES CHEST PAIN, PALPITATIONS, OR EDEMA. RESPIRATORY: DENIES COUGH OR DYSPNEA. GASTROINTESTINAL: DENIES ABDOMINAL PAIN, NAUSEA, VOMITING, OR DIARRHEA. GENITOURINARY: DENIES DYSURIA OR HEMATURIA. SKIN: REPORTS BRUISING TO THE RIGHT WRIST. MUSCULOSKELETAL: REPORTS RIGHT WRIST PAIN. NEUROLOGIC: DENIES HEADACHE, NUMBNESS, DIZZINESS, OR WEAKNESS. PSYCHIATRIC: DENIES ANXIETY OR DEPRESSION. [facility] Past Medical History Medical History Urinary retention CVA (cerebral vascular accident) Transient ischemic attack Prostate cancer (~04/2021) Hx of back injury Family hx of colon cancer Insomnia Benign prostatic hyperplasia with lower urinary tract symptoms Major depressive disorder, recurrent, mild Pure hypercholesterolemia, unspecified Asthma Hx of colonic polyp Surgical History Surgical History Hx of hernia repair History of colon resection Family History Family History Father Acute myocardial infarction Mother Carcinoma of colon, Onset Age: 83 Sibling Carcinoma of colon, Onset Age: 48 Social History Social History Smoking status: Never smoker Second hand tobacco smoke exposure: No Alcohol intake: never Substance use: never Substance use type: does not use Do You Feel Safe in your Home?: Yes Lack of Transportation: No Lack of Food: Never True Current Housing: I Have Housing Concerned About Future Housing: No Difficulty Paying Gas/Electric Bills: No Difficulty Paying for Meds: No Currently Unemployed: No Education: High School Diploma/GED Difficulty w/ Childcare or Family Care: No Living arrangements: with family Occupation/Education: retired Gender identity (if verbalized by the patient): Male Sexual Orientation (if Verbalized by the Patient): Straight or Heterosexual Spiritual care concerns: No Agree to blood products: Yes Exam Narrative: GENERAL: WELL-APPEARING, WELL-NOURISHED, AND IN NO ACUTE DISTRESS. HEAD: NORMOCEPHALIC, ATRAUMATIC. EYES: PERRLA AND EOMI. ENT: NARES CLEAR, NO RHINORRHEA OR EPISTAXIS. MUCOUS MEMBRANES MOIST. OROPHARYNX WITHOUT TONSILLAR HYPERTROPHY EXUDATE OR OTHER LESIONS. UNABLE TO VISUALIZE TM'S DUE TO CERUMEN PRESENT NECK: SUPPLE. NO ADENOPATHY OR MASSES. NO CAROTID BRUITS OR JVD CHEST: CLEAR TO AUSCULTATION. NO RESPIRATORY DISTRESS. NO WHEEZES RALES OR RHONCHI HEART: REGULAR RATE AND RHYTHM. NO MURMUR HEARD. NORMAL PERIPHERAL PULSES. ABDOMEN: SOFT, NONTENDER, NONDISTENDED, NORMAL ACTIVE BOWEL SOUNDS. EXTREMITIES: RIGHT WRIST IS TENDER TO PALPATION. 4/5 HAND OPERATIONS AND MAINTENANCE TECHNICIAN STRENGTH ON THE RIGHT. 5/5 HAND OPERATIONS AND MAINTENANCE TECHNICIAN STRENGTH ON THE LEFT. THERE IS SWELLING IN THE RIGHT WRIST. THERE IS NO DEFORMITY OR CREPITUS. MOVEMENT REPRODUCES PAIN IN THE RIGHT WRIST. SKIN: ECCHYMOSIS NOTED TO THE RIGHT WRIST NEURO: NO FOCAL DEFICITS. ALERT AND ORIENTED X3. PSYCH: NORMAL MOOD AND AFFECT. Course Course Emergency Course: THIS IS A 79-YEAR-OLD MALE WHO PRESENTED FOR EVALUATION OF RIGHT WRIST PAIN. X- RAY NEGATIVE FOR FRACTURE. PROVIDED WITH SAGE WRAP. RECOMMENDED VELCRO WRIST SPLINT. HE STATES HE WAS TOLD IN THE PAST THAT HE SHOULD NOT TAKE IBUPROFEN. WILL DISCHARGE WITH SMALL QUANTITY OF HYDROCODONE. HE LIVES WITH HIS DAUGHTER WILL MONITOR HIM CLOSELY. I IRRIGATED HIS EARS AND HE HAD EVIDENCE OF OTITIS MEDIA ON EXAM THEREAFTER. WILL DISCHARGE WITH AUGMENTIN AND OFLOXACIN HE HAS A SMALL AMOUNT OF ERYTHEMA AND BLEEDING IN THE EAR CANAL STATUS POST EAR IRRIGATION. HE SHOULD FOLLOW-UP WITH HIS PRIMARY CARE PROVIDER AND GO TO THE EMERGENCY DEPARTMENT FOR WORSENING SYMPTOMS. PATIENT IN AGREEMENT WITH PLAN OF CARE Level of Care: Express Care Visit Vital Signs Vital signs: Vital Signs Temperature 36.6 C 08/17/24 18:30 Pulse Rate 53 L 08/17/24 18:30 Respiratory Rate 16 08/17/24 18:30 Blood Pressure 121/84 08/17/24 18:30 Pulse Oximetry 100 08/17/24 18:30 Temperature 36.6 C 08/17/24 18:30 Pulse Rate 53 L 08/17/24 18:30 Respiratory Rate 16 08/17/24 18:30 Blood Pressure 121/84 08/17/24 18:30 Pulse Oximetry 100 08/17/24 18:30 Procedures Ear Wax Removal Both Ears: Ear Wax Removal Date: 08/17/24 Ear Wax Removal Time: 19:37 Cerumenolytic Used: other (HYDROGEN PEROXIDE AND WATER) Results: Re-examined: some cerumen remains TM Examination: TM(s) erythematous Ear Canal Exam: bleeding Noted (SCANT AMOUNT) Patient Tolerated Procedure: well Complications: bleeding Technique: ear canal irrigated and ear canal curetted Medical Decision Making Vital Signs Vital Signs: Vital Signs Temperature 36.6 C 08/17/24 18:30 Pulse Rate 53 L 08/17/24 18:30 Respiratory Rate 16 08/17/24 18:30 Blood Pressure 121/84 08/17/24 18:30 Pulse Oximetry 100 08/17/24 18:30 Temperature 36.6 C 08/17/24 18:30 Pulse Rate 53 L 08/17/24 18:30 Respiratory Rate 16 08/17/24 18:30 Blood Pressure 121/84 08/17/24 18:30 Pulse Oximetry 100 08/17/24 18:30 Imaging Data Radiologist's impression: EXAMINATION: XR wrist RT min 3V DATE: 08/17/2024 19:02 INDICATION: Right wrist pain and swelling. TECHNIQUE: 4 views of right wrist were obtained. COMPARISON: None. FINDINGS: Alignment is normal. No fracture. There is mild osteoarthritis of triscaphe joint and first carpometacarpal joint. IMPRESSION: 1. Mild polyarticular osteoarthritis. Discharge Plan Discharge Clinical Impression: Bilateral impacted cerumen, Right wrist sprain Otitis media Qualifiers: Otitis media type: unspecified Chronicity: acute Qualified Code(s): H66.90 - Otitis media, unspecified, unspecified ear Patient Disposition: Home, Self-Care Condition: Stable Instructions: Antibiotic Form, Carbamide Peroxide (Into the ear), Ear Infection (ED), Wrist Sprain (ED) Additional Instructions: PLEASE PURCHASE AND WEAR A VELCRO WRIST SPLINT ON THE RIGHT APPLY ICE TO THE RIGHT WRIST Patient Language: Prydeinig Prescriptions: New amoxicillin-pot clavulanate 875-125 mg tablet 1 tablet PO Q12H Qty: 20 0RF ofloxacin 0.3 % drops 10 drp EACH EAR DAILY 7 Days Qty: 10 0RF hydrocodone-acetaminophen 5-325 mg tablet 1 - 2 tablet PO Q6H PRN (Reason: pain) Qty: 15 0RF No Action aspirin 81 mg Tablet,Delayed Release (Dr/Ec) 81 mg PO QAM Qty: 30 0RF bethanechol chloride 25 mg tablet 25 mg PO BID tamsulosin 0.4 mg capsule See Rx Instructions .ROUTE .COMPLEX Qty: 180 3RF Dose Instruction: TAKE 1 CAPSULE TWICE A DAY Rx Instructions: TAKE 1 CAPSULE TWICE A DAY oxybutynin chloride 5 mg tablet 5 mg PO BID Qty: 180 3RF clopidogrel 75 mg tablet 75 mg PO QAM Qty: 30 5RF atorvastatin 80 mg tablet 80 mg PO HS Qty: 90 3RF pantoprazole 40 mg tablet,delayed release (DR/EC) 40 mg PO BID Qty: 180 2RF Rx Instructions: TAKE 1 TABLET TWICE A DAY escitalopram oxalate 20 mg tablet 20 mg PO DAILY Qty: 90 2RF Follow-up/Referrals: Hussein Davis MD [Primary Care Provider] - Time of Disposition: 19:25
== END 2024-08-17 19:30 | disposition home or self-care (01) ==
PROVIDERS: Emergency Provider Nurse Practitioner; PCP Family Medicine Adolescent Medicine
DX: H61.23 Impacted cerumen, bilateral (principal); S63.501A Unspecified sprain of right wrist, initial encounter; H66.90 Otitis media, unspecified, unspecified ear; Z86.73 Personal history of transient ischemic attack (TIA), and cerebral infarction without residual deficits; W01.0XXA Fall on same level from slipping, tripping and stumbling without subsequent striking against object, initial encounter
CPT/HCPCS: 69210; 73110; 99213; G0463

== ENCOUNTER 2024-08-29 18:32 | Emergency (ER) | payer MEDICARE, SELFPAY ==
--- NOTE | 2024-08-29 18:34 | ED.EAR ---
HPI - Ear Problem General Chief complaint: Ear Stated complaint: EARACHE/JAW PAIN Source: patient and RN notes reviewed Mode of arrival: ambulatory Limitations: no limitations History of Present Illness HPI Narrative: Patient is a 79-year-old male who presents to the [facility] with complaints of right ear pain. Patient was seen at this facility on 08/17/2024 and diagnosed with cerumen impaction and ear infection. At that time, patient states that his ears were irrigated then he was started on Augmentin and Ofloxicin. He has completed the medications, but continues to have ear pain. He denies ear drainage. Denies recent fevers. Denies trouble swallowing or trismus. Related Data Home Medications ?Medication ?Instructions ?Recorded ?Confirmed ?Last Taken ?Type bethanechol chloride 25 mg tablet 25 mg PO BID 08/22/23 08/17/24 12/23/23 08:00 History Allergies Allergy/AdvReac Type Severity Reaction Status Date / Time No Known Allergies Allergy Mild Verified 08/29/24 18:43 Review of Systems Review of Systems: CONSTITUTIONAL: Denies fever, chills, or sweats. EYES: Denies visual changes, redness, or discharge. ENT: Reports otalgia but denies sore throat CARDIOVASCULAR: Denies chest pain, palpitations, or edema. RESPIRATORY: Denies cough or dyspnea. GASTROINTESTINAL: Denies abdominal pain, nausea, vomiting, or diarrhea. GENITOURINARY: Denies dysuria or hematuria. SKIN: Denies rash or itching. MUSCULOSKELETAL: Denies back pain, joint pain, or myalgia. NEUROLOGIC: Denies headache, numbness, or weakness. Pertinent positives per HPI. [facility] Past Medical History Medical History Urinary retention CVA (cerebral vascular accident) Transient ischemic attack Prostate cancer (~04/2021) Hx of back injury Family hx of colon cancer Insomnia Benign prostatic hyperplasia with lower urinary tract symptoms Major depressive disorder, recurrent, mild Pure hypercholesterolemia, unspecified Asthma Hx of colonic polyp Surgical History Surgical History Hx of hernia repair History of colon resection Family History Family History Father Acute myocardial infarction Mother Carcinoma of colon, Onset Age: 83 Sibling Carcinoma of colon, Onset Age: 48 Social History Social History Smoking status: Never smoker Second hand tobacco smoke exposure: No Alcohol intake: never Substance use: never Substance use type: does not use Do You Feel Safe in your Home?: Yes Lack of Transportation: No Lack of Food: Never True Current Housing: I Have Housing Concerned About Future Housing: No Difficulty Paying Gas/Electric Bills: No Difficulty Paying for Meds: No Currently Unemployed: No Education: High School Diploma/GED Difficulty w/ Childcare or Family Care: No Living arrangements: with family Occupation/Education: retired Gender identity (if verbalized by the patient): Male Sexual Orientation (if Verbalized by the Patient): Straight or Heterosexual Spiritual care concerns: No Agree to blood products: Yes Comments At the time of my signature, I reviewed and agree with the nursing past medical, surgical, social, and family history. There is no relevant family history pertinent to the patient complaint. Exam Narrative: GENERAL: This is a well-nourished, well-developed patient, in no apparent distress. HEAD: normocephalic, atraumatic. EYES: Sclera clear/white. Vision is grossly intact. EARS: External ears normal, auditory canals clear and without drainage, TMs opaque bilaterally. Hearing grossly intact. NOSE: External nose normal with no obvious nasal discharge, nares without redness, no rhinorrhea. THROAT: Mucous membranes moist, posterior pharynx clear. NECK: Neck supple, non-tender without lymphadenopathy, masses or thyromegaly. CARDIOVASCULAR: Regular rate and rhythm without murmurs, gallops, or rubs. RESPIRATORY: Clear to auscultation. Breath sounds equal bilaterally. No wheezes, rales, or rhonchi. GASTROINTESTINAL: Abdomen soft, non-tender, nondistended. Bowel sounds are active. No hepato-splenomegaly, or palpable masses. No guarding. SKIN: warm, intact with no suspicious lesions or rash, good texture and turgor. NEURO: awake, alert, and oriented to person, place and time. There were no obvious focal neurologic abnormalities. Course Course Level of Care: Express Care Visit Vital Signs Vital signs: Vital Signs Temperature 97.5 F L 08/29/24 18:40 Pulse Rate 69 08/29/24 18:40 Respiratory Rate 16 08/29/24 18:40 Blood Pressure 127/83 08/29/24 18:40 Pulse Oximetry 99 08/29/24 18:40 Temperature 97.5 F L 08/29/24 18:40 Pulse Rate 69 08/29/24 18:40 Respiratory Rate 16 08/29/24 18:40 Blood Pressure 127/83 08/29/24 18:40 Pulse Oximetry 99 08/29/24 18:40 Reviewed Medical Decision Making MDM Narrative Medical decision making narrative: Take antibiotics as directed. May given ibuprofen and/or Tylenol as needed for pain and/or fever. Follow up with primary care provider in 7-10 days to have ear rechecked. Differential Diagnosis Differential Diagnosis: otitis media, otitis externa, cerumen impaction Vital Signs Vital Signs: Vital Signs Temperature 97.5 F L 08/29/24 18:40 Pulse Rate 69 08/29/24 18:40 Respiratory Rate 16 08/29/24 18:40 Blood Pressure 127/83 08/29/24 18:40 Pulse Oximetry 99 08/29/24 18:40 Temperature 97.5 F L 08/29/24 18:40 Pulse Rate 69 08/29/24 18:40 Respiratory Rate 16 08/29/24 18:40 Blood Pressure 127/83 08/29/24 18:40 Pulse Oximetry 99 08/29/24 18:40 Critical Care Time Critical Care Time Critical Care Time: No Discharge Plan Discharge Clinical Impression: Acute serous otitis media of right ear Patient Disposition: Home, Self-Care Condition: Stable Instructions: Antibiotic Form, Ear Infection (ED), Fluid In The Ear (Serous Otitis Media) (ED) Additional Instructions: Take antibiotics as directed. May given ibuprofen and/or Tylenol as needed for pain and/or fever. Follow up with primary care provider in 7-10 days to have ear rechecked. Patient Language: Sinhala Prescriptions: New cefdinir 300 mg capsule 300 mg PO Q12H 10 Days Qty: 20 0RF dexamethasone 4 mg tablet 4 mg PO DAILY 5 Days Qty: 5 0RF No Action amoxicillin-pot clavulanate 875-125 mg tablet 1 tablet PO Q12H Qty: 20 0RF ofloxacin 0.3 % drops 10 drp EACH EAR DAILY 7 Days Qty: 10 0RF hydrocodone-acetaminophen 5-325 mg tablet 1 - 2 tablet PO Q6H PRN (Reason: pain) Qty: 15 0RF aspirin 81 mg Tablet,Delayed Release (Dr/Ec) 81 mg PO QAM Qty: 30 0RF bethanechol chloride 25 mg tablet 25 mg PO BID tamsulosin 0.4 mg capsule See Rx Instructions .ROUTE .COMPLEX Qty: 180 3RF Dose Instruction: TAKE 1 CAPSULE TWICE A DAY Rx Instructions: TAKE 1 CAPSULE TWICE A DAY oxybutynin chloride 5 mg tablet 5 mg PO BID Qty: 180 3RF clopidogrel 75 mg tablet 75 mg PO QAM Qty: 30 5RF atorvastatin 80 mg tablet 80 mg PO HS Qty: 90 3RF pantoprazole 40 mg tablet,delayed release (DR/EC) 40 mg PO BID Qty: 180 2RF Rx Instructions: TAKE 1 TABLET TWICE A DAY escitalopram oxalate 20 mg tablet 20 mg PO DAILY Qty: 90 2RF Follow-up/Referrals: Hussein Davis MD [Primary Care Provider] - Time of Disposition: 18:46
[2024-08-29 18:40] VITALS: BP 127/83; PULSE 69; RESP 16; TEMP 36.4; O2SAT 99
== END 2024-08-29 18:49 | disposition home or self-care (01) ==
PROVIDERS: Emergency Provider Nurse Practitioner; PCP Family Medicine Adolescent Medicine
DX: H65.01 Acute serous otitis media, right ear (principal); N40.1 Benign prostatic hyperplasia with lower urinary tract symptoms; E78.00 Pure hypercholesterolemia, unspecified; J45.909 Unspecified asthma, uncomplicated; Z86.73 Personal history of transient ischemic attack (TIA), and cerebral infarction without residual deficits; Z85.46 Personal history of malignant neoplasm of prostate
CPT/HCPCS: 99213; G0463